=== PATIENT | female | born 1935 | race African-American/Black ===

== ENCOUNTER 2017-12-20 18:50 | Inpatient (IN) ==
[2017-12-20] MEDS ORDERED: *HR* FentaNYL (PF) 100 MCG/2 ML VIAL IVP ONE (19:31)
[2017-12-20] MEDS ORDERED: Ondansetron 4 MG/2 ML VIAL IVP ONE (19:31)
[2017-12-20 19:52] LABS: Bilirubin,Urine Negative (Negative); Blood,Urine Small (Negative); Clarity,Urine Clear (Clear); Color,Urine Yellow (Yellow); Glucose,Urine (UA) Normal (Normal); Ketones,Urine Negative (Negative); Leukocyte Esterase,Urine Negative (Negative); Nitrite,Urine Negative (Negative); Protein,Urine 30 mg/dL (Neg-Trace); Specific Gravity,Urine 1.005 (1.010-1.025); Urobilinogen,Urine Normal (Normal)
[2017-12-20 19:53] LABS: Bacteria,Urine None Seen per hpf (None-Few); Hyaline Casts,Urine None Seen per lpf (None-Few); RBC,Urine 0-3 per hpf (0-3); Squamous Epithelial Cell,Urine None Seen per lpf (None-Few); WBC,Urine 0-3 per hpf (0-3)
--- NOTE | 2017-12-20 20:20 | Emergency Department Note ---
Disposition Clinical Impression: Elevated troponin Abdominal pain Qualifiers: Abdominal location: right upper quadrant Qualified Code(s): R10.11 - Right upper quadrant pain Disposition: Admitted As Inpatient Condition: Good Referrals: Gigi Alas MD [Primary Care Provider] - Forms: ED Satisfaction Letter, Work/School Release General Adult HPI - General Chief complaint: ED Abdominal Pain Stated complaint: ABD PAin Time Seen by Provider: 12/20/17 19:16 Source: patient, family Mode of arrival: ambulatory Limitations: no limitations Nursing Notes Reviewed: Yes Vital Signs Reviewed: Yes - History of Present Illness HPI Narrative: 82-year-old female with significant past medical history of asthma, hypertension and diabetes presenting to the emergency department chief complaint abdominal pain. Patient states last evening she started having right lower quadrant abdominal pain. Today it continued and started radiating to the right upper quadrant. Patient denies any previous abdominal surgeries. Denies any nausea, vomiting, diarrhea or constipation. Patient has not tried anything at home for this. She states it is now radiating from her right upper quadrant into her breasts. Patient denies any cardiac history or any cardiac stents. Denies being on any anticoagulation. Pain Scale: 10 - Related Data Home Medications Medication Instructions Recorded Confirmed Albuterol Sulfate [Proair Hfa] 2 puff IH Q4H PRN 12/20/17 12/20/17 Aspirin Enteric Coated [Aspirin EC] 81 mg PO DAILY 12/20/17 12/20/17 Calcium Carbonate/Vitamin D3 1 tab PO DAILY 12/20/17 12/20/17 [Oyster Shell 250 mg + Vit D Tb] Diltiazem CD (24hr) [Cardizem CD] 120 mg PO DAILY 12/20/17 12/20/17 Docusate [Colace] 100 mg PO BID 12/20/17 12/20/17 Dorzolamide/Timolol [Cosopt] 1 drop OP BID 12/20/17 12/20/17 Latanoprost [Xalatan] 1 drop OP DAILY 12/20/17 12/20/17 Montelukast [Singulair] 10 mg PO DAILY 12/20/17 12/20/17 Multivitamin [One Daily Essential] 1 tab PO DAILY 12/20/17 12/20/17 Potassium Chloride Elixir 5 ml PO TID 12/20/17 12/20/17 [Potassium Chloride] Simvastatin [Zocor] 20 mg PO HS 12/20/17 12/20/17 Telmisartan [Micardis] 80 mg PO DAILY 12/20/17 12/20/17 hydroCHLOROthiazide 25 mg PO DAILY 12/20/17 12/20/17 [Hydrochlorothiazide] Allergies Allergy/AdvReac Type Severity Reaction Status Date / Time No Known Allergies Allergy Verified 12/20/17 17:54 All systems ED: reviewed and negative except as stated. Constitutional: Denies: fever, chills Eyes: Reports: as per HPI ENT ED: Reports: as per HPI Cardiovascular: Denies: chest pain, palpitations, dyspnea on exertion Respiratory: Denies: cough, dyspnea, wheezes Gastrointestinal: Reports: abdominal pain. Denies: nausea, vomiting, diarrhea, constipation Genitourinary: Reports: as per HPI Musculoskeletal: Reports: as per HPI Integumentary: Denies: rash, abrasion Neurological: Denies: numbness, paresthesias Psychiatric: Reports: as per HPI Endocrine: Reports: as per HPI Hematological/Lymphatic: Reports: as per HPI Allergic/Immunologic: Reports: as per HPI Past Medical History - Past Medical History Attestation: Yes The following information was validated with the patient. Medical history: Reports: asthma, COPD, hyperlipidemia, hypertension Psychiatric history: Reports: no psych history - Social History Smoking Status: Former smoker Smokeless Tobacco Status: No Alcohol use: Reports: none Drug use: Reports: none Physical Exam - General Limitations: no limitations General appearance: alert, in no apparent distress - Head Head exam: atraumatic, normocephalic, normal inspection - Eye Eye exam: Present: normal appearance. Absent: scleral icterus, conjunctival injection - ENT ENT exam: normal exam, mucous membranes moist - Neck Neck exam: Present: normal inspection, full ROM. Absent: tenderness, meningismus - Chest Chest inspection: Present: normal inspection, symmetric chest wall rise. Absent : tenderness, rash - Respiratory Respiratory exam: Present: normal lung sounds bilaterally. Absent: respiratory distress, wheezes - Cardiovascular Cardiovascular exam: Present: normal rhythm, tachycardia, normal heart sounds - Abdominal Exam Abdominal exam: Present: soft, tenderness. Absent: distention, guarding, rebound, rigidity Abdominal tenderness: Present: RUQ, mild - Extremities Exam Extremities exam: Present: normal inspection, full ROM - Neurological Exam Neurological exam: Present: alert, oriented X3 - Psychiatric Psychiatric exam: Present: normal affect, normal mood - Skin Skin exam: Present: warm, intact Course Course Narrative: 82-year-old female presenting with right-sided abdominal pain. Patient is alert and 3 in the room with stable vital signs. Afebrile. Patient does have tenderness to right mid abdomen and upper quadrant. Otherwise physical exam benign. We will obtain basic laboratory analysis including CBC, CMP, lipase, urine analysis and CT of the abdomen and pelvis. Disposition pending results. Patient agrees with this plan. We will also obtain a troponin and EKG on the patient. - Reevaluation(s) Reevaluation #1: Patient's laboratory analysis shows mild leukocytosis and elevated troponin at 0.06. Patient denies chest pain. She remains alert and oriented 3 in the room with stable vital signs. CT of the abdomen and pelvis shows 1. No definite CT evidence of an acute intra-abdominal or intrapelvic process. 2. There are areas of skin and fat soft tissue density and thickening posterior upper right thigh and left buttock region which may be related to scarring or an acute infectious or inflammatory process. Correlate with physical inspection. 3. Diverticulosis coli without CT evidence of acute diverticulitis. 4. Bilateral urinary bladder diverticula. 5. Bilateral renal calculi. No hydronephrosis or nephrolithiasis. 6. Small volume right pleural effusion with right basilar atelectasis. Pneumonitis is a consideration. 7. Coronary artery calcifications. 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 Due to patient's elevated troponin we will plan to admit her for further evaluation. Patient agrees with this plan. I spoke with the hospitalist on- call Dr. Lee who agrees to accept the patient. Vital Signs Temperature 98.3 F 12/20/17 19:05 Pulse Rate 101 12/20/17 19:05 Respiratory Rate 16 12/20/17 19:05 Blood Pressure 154/86 12/20/17 19:05 O2 Sat by Pulse Oximetry 93 12/20/17 19:05 Temperature 98.3 F 12/20/17 19:18 Pulse Rate 99 12/20/17 21:05 Respiratory Rate 25 12/20/17 21:05 Blood Pressure 148/86 12/20/17 21:05 O2 Sat by Pulse Oximetry 96 12/20/17 21:05 Oxygen Delivery Oxygen Delivery Nasal Cannula Medical Decision Making - Lab Data Result diagrams: 12/20/17 20:04 12/20/17 20:04 Lab Results 12/20/17 12/20/17 12/20/17 Range/Units 19:37 20:04 20:04 WBC 11.7 H (4.3-11.1) K/mcL RBC 5.02 H (3.82-4.97) M/mcL Hgb 13.8 (11.5-15.4) g/dL Hct 42.4 (35.3-44.9) % MCV 84.5 (83.0-100.0) fL MCH 27.5 L (28.0-33.3) pg MCHC 32.5 (31.6-35.5) g/dL RDW 14.5 (11.5-14.5) % Plt Count 195 (140-400) K/mcL MPV 10.1 (9.4-12.4) fL Immature Gran % 0.2 (0-4) % Seg Neutrophils % 71.8 % Lymphocytes % 20.2 % Monocytes % 7.2 % Eosinophils % 0.3 % Basophils % 0.3 % Neutrophils # 8.4 (1.6-8.9) K/mcL Lymphocytes # 2.4 (0.6-4.6) K/mcL Monocytes # 0.9 (0.0-1.3) K/mcL Eosinophils # 0.0 (0.0-0.6) K/mcL Basophils # 0.0 (0.0-0.2) K/mcL Sodium 138 (136-145) mEq/L Potassium 3.5 (3.5-5.1) mEq/L Chloride 103 (98-107) mEq/L Carbon Dioxide 23 (23-29) mEq/L BUN 15 (8-23) mg/dL Creatinine 0.84 (0.60-1.20) mg/dL Est GFR ( Amer) > 60 (> 60) Est GFR (Non-Af Amer) > 60 (> 60) BUN/Creatinine Ratio 18 (6-26) Glucose 149 H (70-105) mg/dL Calculated Osmolality 290 (280-300) Calcium 9.9 (8.6-10.3) mg/dL Total Bilirubin 0.4 (0.3-1.0) mg/dL Direct Bilirubin 0.1 (0.0-0.2) mg/dL Indirect Bilirubin 0.3 (0.0-1.2) mg/dL AST 17 (13-39) Units/L ALT 9 (7-52) Units/L Alkaline Phosphatase 89 (34-104) Units/L Troponin I 0.06 H* (< 0.04) ng/mL Serum Total Protein 8.0 (6.4-8.9) g/dL Albumin 4.0 (3.5-5.7) g/dL Globulin 4.0 H (2.4-3.5) g/dL Albumin/Globulin Ratio 1.0 L (1.1-2.2) Lipase 35 (11-82) Units/L Urine Color Yellow (Yellow) Urine Clarity Clear (Clear) Urine pH 6.0 (5.0-8.0) pH Units Ur Specific [place] 1.005 L (1.010-1.025) Urine Protein 30 H (Neg-Trace) mg/dL Urine Glucose (UA) Normal (Normal) mg/dL Urine Ketones Negative (Negative) mg/dL Urine Blood Small H (Negative) Urine Nitrite Negative (Negative) Urine Bilirubin Negative (Negative) Urine Urobilinogen Normal (Normal) mg/dL Ur Leukocyte Esterase Negative (Negative) Urine Microscopic RBC 0-3 (0-3) per hpf Urine Microscopic WBC 0-3 (0-3) per hpf Ur Squamous Epith Cells None Seen (None-Few) per lpf Urine Bacteria None Seen (None-Few) per hpf Hyaline Casts None Seen (None-Few) per lpf Ur Culture Indicated? NO (NO) - EKG Data EKG #1 EKG attestation: Yes I reviewed and interpreted this EKG. EKG results narrative: Sinus rhythm. 97 beats for minute. CO interval to 10, QRS 77, QTC 448. PVCs noted. Left axis deviation. Compared to previous EKG completed on 01/25/2005 no significant changes noted.
[2017-12-20 20:22] LABS: Basophils % 0.3 %; Eosinophils % 0.3 %; Hematocrit 42.4 % (35.3-44.9); Hemoglobin 13.8 g/dL (11.5-15.4); Immature Granulocytes % 0.2 % (0-4); Lymphocytes # 2.4 K/mcL (0.6-4.6); Lymphocytes % 20.2 %; Mean Corpuscular HGB Conc 32.5 g/dL (31.6-35.5); Mean Corpuscular Hemoglobin 27.5 pg (28.0-33.3); Mean Corpuscular Volume 84.5 fL (83.0-100.0); Mean Platelet Volume 10.1 fL (9.4-12.4); Monocytes # 0.9 K/mcL (0.0-1.3); Monocytes % 7.2 %; Neutrophils # 8.4 K/mcL (1.6-8.9); Platelet Count 195 K/mcL (140-400); Red Blood Count 5.02 M/mcL (3.82-4.97); Red Cell Distribution Width 14.5 % (11.5-14.5); Segmented Neutrophils % 71.8 %
[2017-12-20 20:43] LABS: Alanine Aminotransferase 9 Units/L (7-52); Alkaline Phosphatase 89 Units/L (34-104); Aspartate Amino Transferase 17 Units/L (13-39); BUN/Creatinine Ratio 18 (6-26); Bilirubin,Direct 0.1 mg/dL (0.0-0.2); Bilirubin,Indirect 0.3 mg/dL (0.0-1.2); Bilirubin,Total 0.4 mg/dL (0.3-1.0); Blood Urea Nitrogen 15 mg/dL (8-23); Calcium 9.9 mg/dL (8.6-10.3); Carbon Dioxide 23 mEq/L (23-29); Chloride 103 mEq/L (98-107); Glucose 149 mg/dL (70-105); Lipase 35 Units/L (11-82); Osmolality,Calculated 290 (280-300); Potassium 3.5 mEq/L (3.5-5.1); Sodium 138 mEq/L (136-145); eGFR For Non-African Americans > 60 (> 60)
[2017-12-20 20:46] LABS: Troponin I 0.06 ng/mL (< 0.04)
[2017-12-20] MEDS ORDERED: *HR* Enoxaparin 60 MG/0.6 ML SYRINGE SQ STA (21:41)
[2017-12-20] MEDS ORDERED: Aspirin 325 MG TABLET PO ONE (21:41)
[2017-12-20] MEDS ORDERED: Levofloxacin 750 MG/150 ML 750 MG/150 ML BAG IVPB ONE (22:01)
--- NOTE | 2017-12-20 22:20 | Emergency Department Note ---
Disposition Clinical Impression: Elevated troponin Abdominal pain Qualifiers: Abdominal location: right upper quadrant Qualified Code(s): R10.11 - Right upper quadrant pain Disposition: Admitted As Inpatient Condition: Good General Adult HPI - General Chief complaint: ED Abdominal Pain Stated complaint: ABD PAin Time Seen by Provider: 12/20/17 19:16 Source: patient, family Mode of arrival: ambulatory Limitations: no limitations - History of Present Illness Pain Scale: 10 - Related Data Home Medications Medication Instructions Recorded Confirmed Albuterol Sulfate [Proair Hfa] 2 puff IH Q4H PRN 12/20/17 12/20/17 Aspirin Enteric Coated [Aspirin EC] 81 mg PO DAILY 12/20/17 12/20/17 Calcium Carbonate/Vitamin D3 1 tab PO DAILY 12/20/17 12/20/17 [Oyster Shell 250 mg + Vit D Tb] Diltiazem CD (24hr) [Cardizem CD] 120 mg PO DAILY 12/20/17 12/20/17 Docusate [Colace] 100 mg PO BID 12/20/17 12/20/17 Dorzolamide/Timolol [Cosopt] 1 drop OP BID 12/20/17 12/20/17 Latanoprost [Xalatan] 1 drop OP DAILY 12/20/17 12/20/17 Montelukast [Singulair] 10 mg PO DAILY 12/20/17 12/20/17 Multivitamin [One Daily Essential] 1 tab PO DAILY 12/20/17 12/20/17 Potassium Chloride Elixir 5 ml PO TID 12/20/17 12/20/17 [Potassium Chloride] Simvastatin [Zocor] 20 mg PO HS 12/20/17 12/20/17 Telmisartan [Micardis] 80 mg PO DAILY 12/20/17 12/20/17 hydroCHLOROthiazide 25 mg PO DAILY 12/20/17 12/20/17 [Hydrochlorothiazide] Allergies Allergy/AdvReac Type Severity Reaction Status Date / Time No Known Allergies Allergy Verified 12/20/17 17:54 Constitutional: Denies: fever, chills Eyes: Reports: as per HPI ENT ED: Reports: as per HPI Cardiovascular: Denies: chest pain, palpitations, dyspnea on exertion Respiratory: Denies: cough, dyspnea, wheezes Gastrointestinal: Reports: abdominal pain. Denies: nausea, vomiting, diarrhea, constipation Genitourinary: Reports: as per HPI Musculoskeletal: Reports: as per HPI Integumentary: Denies: rash, abrasion Neurological: Denies: numbness, paresthesias Psychiatric: Reports: as per HPI Endocrine: Reports: as per HPI Hematological/Lymphatic: Reports: as per HPI Allergic/Immunologic: Reports: as per HPI Past Medical History - Past Medical History Medical history: Reports: asthma, COPD, hyperlipidemia, hypertension Psychiatric history: Reports: no psych history - Social History Smoking Status: Former smoker Smokeless Tobacco Status: No Alcohol use: Reports: none Drug use: Reports: none Physical Exam - General Limitations: no limitations General appearance: alert, in no apparent distress Course Vital Signs Temperature 98.3 F 12/20/17 19:05 Pulse Rate 101 12/20/17 19:05 Respiratory Rate 16 12/20/17 19:05 Blood Pressure 154/86 12/20/17 19:05 O2 Sat by Pulse Oximetry 93 12/20/17 19:05 Temperature 98.3 F 12/20/17 19:18 Pulse Rate 99 12/20/17 21:05 Respiratory Rate 25 12/20/17 21:05 Blood Pressure 148/86 12/20/17 21:05 O2 Sat by Pulse Oximetry 96 12/20/17 21:05 Oxygen Delivery Oxygen Delivery Nasal Cannula Medical Decision Making - Lab Data Result diagrams: 12/20/17 20:04 12/20/17 20:04 Lab Results 12/20/17 12/20/17 12/20/17 Range/Units 19:37 20:04 20:04 WBC 11.7 H (4.3-11.1) K/mcL RBC 5.02 H (3.82-4.97) M/mcL Hgb 13.8 (11.5-15.4) g/dL Hct 42.4 (35.3-44.9) % MCV 84.5 (83.0-100.0) fL MCH 27.5 L (28.0-33.3) pg MCHC 32.5 (31.6-35.5) g/dL RDW 14.5 (11.5-14.5) % Plt Count 195 (140-400) K/mcL MPV 10.1 (9.4-12.4) fL Immature Gran % 0.2 (0-4) % Seg Neutrophils % 71.8 % Lymphocytes % 20.2 % Monocytes % 7.2 % Eosinophils % 0.3 % Basophils % 0.3 % Neutrophils # 8.4 (1.6-8.9) K/mcL Lymphocytes # 2.4 (0.6-4.6) K/mcL Monocytes # 0.9 (0.0-1.3) K/mcL Eosinophils # 0.0 (0.0-0.6) K/mcL Basophils # 0.0 (0.0-0.2) K/mcL Sodium 138 (136-145) mEq/L Potassium 3.5 (3.5-5.1) mEq/L Chloride 103 (98-107) mEq/L Carbon Dioxide 23 (23-29) mEq/L BUN 15 (8-23) mg/dL Creatinine 0.84 (0.60-1.20) mg/dL Est GFR ( Amer) > 60 (> 60) Est GFR (Non-Af Amer) > 60 (> 60) BUN/Creatinine Ratio 18 (6-26) Glucose 149 H (70-105) mg/dL Calculated Osmolality 290 (280-300) Calcium 9.9 (8.6-10.3) mg/dL Total Bilirubin 0.4 (0.3-1.0) mg/dL Direct Bilirubin 0.1 (0.0-0.2) mg/dL Indirect Bilirubin 0.3 (0.0-1.2) mg/dL AST 17 (13-39) Units/L ALT 9 (7-52) Units/L Alkaline Phosphatase 89 (34-104) Units/L Troponin I 0.06 H* (< 0.04) ng/mL Serum Total Protein 8.0 (6.4-8.9) g/dL Albumin 4.0 (3.5-5.7) g/dL Globulin 4.0 H (2.4-3.5) g/dL Albumin/Globulin Ratio 1.0 L (1.1-2.2) Lipase 35 (11-82) Units/L Urine Color Yellow (Yellow) Urine Clarity Clear (Clear) Urine pH 6.0 (5.0-8.0) pH Units Ur Specific [place] 1.005 L (1.010-1.025) Urine Protein 30 H (Neg-Trace) mg/dL Urine Glucose (UA) Normal (Normal) mg/dL Urine Ketones Negative (Negative) mg/dL Urine Blood Small H (Negative) Urine Nitrite Negative (Negative) Urine Bilirubin Negative (Negative) Urine Urobilinogen Normal (Normal) mg/dL Ur Leukocyte Esterase Negative (Negative) Urine Microscopic RBC 0-3 (0-3) per hpf Urine Microscopic WBC 0-3 (0-3) per hpf Ur Squamous Epith Cells None Seen (None-Few) per lpf Urine Bacteria None Seen (None-Few) per hpf Hyaline Casts None Seen (None-Few) per lpf Ur Culture Indicated? NO (NO) Critical Care Time Critical Care Time: Yes Total Critical Care Time: 35 Attestation: Critical care time of 35 minutes spent in medical management of elevated troponin. Attestation Statement - Attestation Attestation: I examined this patient and my medical decision-making was reviewed with the Resident Physician. I agree with the documented findings, disposition and treatment plan as described except to the extent set forth below. 82-year-old female in presented to the emergency room for upper abdominal discomfort. Most her pain is in the right upper quadrant region. Seemed to be muscle spasm type pain. Would come on quickly and abruptly and felt sharp in nature and then go away. When I was in the room examining her it appeared as though she had a diaphragmatic spasm. However, her troponin is slightly elevated. Patient will need to be admitted for evaluation for this with serial enzymes. She was given Lovenox secondary to the elevated troponin. Remaining workup including CT the abdomen and pelvis was unremarkable. She is hemodynamically stable. There is no signs of ischemia on her EKG. She is adamant that she denies any chest pain or shortness of breath.
--- NOTE | 2017-12-20 23:12 | Internal Med History&Physical ---
<Marsha Guillory - Last Filed: 12/21/17 01:25> Date of Encounter: 12/21/17 Time of Encounter: 23:10 Internal Medicine - H&P: HPI Chief complaint: abdominal pain Admitted From: Emergency Dept Plans for Post Hospital Care: Home History of present illness: Ms. Dobbins is a 82 year old female hx asthma and DM presented to ED for abdominal pain . She describes it as " like having a baby" that is deep sharp pain but not cramping or stabbing - onset yesterday with feverish feeling. Pain unchanged by bowel movement or eating. Hans nausea , vomiting, diarrhea, and constipation- last BM yesterday was normal. Improved with Tylenol. In ED, afebrile mildly tachycardia at 102 with BP 154/ 86 and RR16 with 93% RA. WBC 11.7, normal CMP and liver function. Elevated troponin 0.06. UA negative. CT ABD pelvis possible pneumonitis. PMHx asthma, HTN, carotid stentosis and DM diet controlled - no history of IBS or IBD and last colonoscopy 4 years ago was normal. Family history of colon cancer in daughter at 61. No surgical history. Former smoker quit over 50 years ago. Denies EtOH and illicit drugs. Past Med Surg Social Fam HX - Past Medical History Medical history: asthma, COPD, hyperlipidemia, hypertension Additional medical history: Type II prediabetic diet controlled Psychiatric history: no psych history - Social History Smoking Status: Former smoker Smokeless Tobacco Status: No Alcohol use: none Drug use: none Internal Medicine - H&P: Meds Albuterol Sulfate [Proair Hfa] 2 puff IH Q4H PRN 12/20/17 [History] Aspirin Enteric Coated [Aspirin EC] 81 mg PO DAILY 12/20/17 [History] Calcium Carbonate/Vitamin D3 [Oyster Shell 250 mg + Vit D Tb] 1 tab PO DAILY [History] Diltiazem CD (24hr) [Cardizem CD] 120 mg PO DAILY 12/20/17 [History] Docusate [Colace] 100 mg PO BID 12/20/17 [History] Dorzolamide/Timolol [Cosopt] 1 drop OP BID 12/20/17 [History] Latanoprost [Xalatan] 1 drop OP DAILY 12/20/17 [History] Montelukast [Singulair] 10 mg PO DAILY 12/20/17 [History] Multivitamin [One Daily Essential] 1 tab PO DAILY 12/20/17 [History] Potassium Chloride Elixir [Potassium Chloride] 5 ml PO TID 12/20/17 [History] Simvastatin [Zocor] 20 mg PO HS 12/20/17 [History] Telmisartan [Micardis] 80 mg PO DAILY 12/20/17 [History] hydroCHLOROthiazide [Hydrochlorothiazide] 25 mg PO DAILY 12/20/17 [History] 3 Allergy/AdvReac Type Severity Reaction Status Date / Time No Known Allergies Allergy Verified 12/20/17 17:54 All Systems PM: A 10-system review of systems was performed and is negative for pertinent findings except as documented above in the HPI. - Constitutional Constitutional: fever(s), no fatigue, no weakness - EENT Eyes: no blurry vision - Cardiovascular Cardiovascular ROS IM: no chest pain, no dyspnea, no edema, no lightheadedness, no syncope - Respiratory Respiratory: pain on inspiration, no cough, no wheezing, no excessive phlegm production - Gastrointestinal Gastrointestinal: abdominal pain, no change in bowel habits, no change in stool character, no constipation, no diarrhea, no nausea, no vomiting - Genitourinary Genitourinary: no dysuria, no urinary frequency, no urinary incontinence - Musculoskeletal Musculoskeletal ROS IM: no numbness, no tingling - Neurological Neurological ROS: no confusion, no dizziness, no frequent falls, no headache(s) - Psychiatric Psychiatric: no difficulty concentrating, no memory loss - Constitutional Vitals: Temp Pulse Resp BP Pulse Ox 98.3 F 92 19 139/90 100 12/20/17 19:18 12/20/17 22:45 12/20/17 22:45 12/20/17 22:45 12/20/17 22:45 General appearance: Present: cooperative, mild distress, A&O X 3, pleasant, answers questions appropriately Exam: periodically splints due to pain - Head Head exam: Present: atraumatic, normocephalic - Eye Eye exam: Present: EOMI, PERRL - ENT ENT exam: Present: mucous membranes moist, normal oropharynx - Respiratory Respiratory exam: Present: CTAB. Absent: rales, wheezes Additional comments: poor effort due to pain with inspirations - Cardiovascular Cardiovascular exam: Present: RRR. Absent: gallop, rubs - GI/Abdominal GI/Abdominal exam: Present: normal bowel sounds, soft. Absent: mass, tenderness Additional comments: No pain with palpation of RUQ but jumps in pain localized there when asked to take deep breath - Extremities Exam Extremities exam: Present: full ROM, radial pulses palpable and symmetrical. Absent: pedal edema - Psychiatric Psychiatric exam: Present: normal affect, normal mood Internal Med - H&P Results - Labs CBC & Chem 7: 12/20/17 20:04 12/20/17 20:04 - Assessment and plan (1) Pneumonitis Current Visit: Yes Status: Acute Assessment and plan: Possible pnuemonitis - CT ABD small volume right pleural effusion with atelectasis - Levaquin (2) Abdominal pain Current Visit: Yes Status: Acute Assessment and plan: DDX reffered pain from pneumonitis vs gallbladder dysfunction with RUQ pain and WBC 11.7. - Tylenol for pain - US Liver to r/o - IVF NS at 100 - NPO (3) Elevated troponin Current Visit: Yes Status: Acute Assessment and plan: T 0.06 likely due to age but small EKG changes with mild ST depression in leads V5-V6 - trend troponins - echo (4) Diabetes Current Visit: Yes Status: Acute Assessment and plan: diet controlled at home Qualifiers: Diabetes mellitus type: type 2 Diabetes mellitus rn long term care insulin use: without shelter use Qualified Code(s): E11.9 - Type 2 diabetes mellitus without complications (5) Hypertension Current Visit: Yes Status: Acute Assessment and plan: Tolerate elevated BP in geriatric patient in setting of pain - continue cardizem and Micardis - hold HCTZ Qualifiers: Hypertension type: essential hypertension Qualified Code(s): I10 - Essential (primary) hypertension (6) DVT prophylaxis Current Visit: Yes Status: Acute Assessment and plan: given lovenox 60 mg in ED - consider changing - Time Spent With Patient Total time spent is greater than 50% in coordination of care (as documented) at patient's floor/unit and/or counseling patient: Greater than 35 minutes <Adalberto Lee - Last Filed: 12/21/17 04:03> Date of Encounter: 12/21/17 Time of Encounter: 01:40 - Constitutional Constitutional: fever(s), no chills, no night sweats - EENT Nose, mouth and throat: no nasal congestion, no sore throat - Cardiovascular Cardiovascular ROS IM: no chest pain, no dyspnea - Gastrointestinal Gastrointestinal: abdominal pain, no diarrhea, no nausea, no vomiting - Genitourinary Genitourinary: no dysuria, no flank pain, no hematuria - Integumentary Integumentary IM: no rash, no jaundice - Psychiatric Psychiatric: no anxiety, no depression - Endocrine Endocrine IM: no polydipsia, no polyuria - Allergic/Immunologic Allergic/Immunologic: no GI upset with certain foods - Constitutional Vitals: Temp Pulse Resp BP Pulse Ox 98.0 F 88 16 98/65 96 12/21/17 03:21 12/21/17 03:21 12/21/17 03:21 12/21/17 03:21 12/21/17 03:21 General appearance: Present: cooperative, A&O X 3, pleasant - Eye Eye exam: Present: EOMI. Absent: scleral icterus - ENT ENT exam: Present: mucous membranes moist, normal oropharynx - Neck Neck exam general surgery: Present: full ROM, supple. Absent: tenderness, nuchal rigidity, thyromegaly - Respiratory Respiratory exam: Present: CTAB. Absent: chest wall tenderness, respiratory distress - Cardiovascular Cardiovascular exam: Present: RRR, +S1, +S2. Absent: diastolic murmur, systolic murmur - GI/Abdominal GI/Abdominal exam: Present: normal bowel sounds, soft, tenderness (+ RUQ pain with deep palpation; ), no peritoneal signs. Absent: guarding, rebound - Extremities Exam Extremities exam: Present: full ROM, warm, radial pulses palpable and symmetrical - Back Exam Back exam: Absent: CVA tenderness (L), CVA tenderness (R) - Neurological Exam Neurological exam: Present: alert, oriented X3, no focal deficits Internal Med - H&P Results - Labs CBC & Chem 7: 12/20/17 20:04 12/20/17 20:04 - Diagnostic Studies Chest x-ray Status: image reviewed by me (subtle interstitial infiltrates) - Time Spent With Patient Total time spent is greater than 50% in coordination of care (as documented) at patient's floor/unit and/or counseling patient: - Attending Attestation I discussed the patient PLATINUM, past medical history, review systems, exam findings, and imaging studies with Dr. Guillory. I then saw and examined patient independently as well. History does not suggest pneumonia. However, imaging does suggest possible interstitial pneumonitis. Her exam is a little concerning for gallbladder disease. She does not have any history to suggest biliary colic, however. We will proceed with gallbladder ultrasound while treating possible pneumonia. We will also trend troponins and order an echo given her slight troponin elevation. EKG is unremarkable and history does not suggest angina. Other than my comments above and noted physical exam findings, I agree with Dr. Guillory's assessment and plan.
[2017-12-20] MEDS ORDERED: Ondansetron ODT 4 MG TAB.RAPDIS SL PRN (23:13)
[2017-12-20] MEDS ORDERED: Naloxone 0.4 MG/ML INJ IVP PRN (23:13)
[2017-12-21] MEDS: Acetaminophen 325 MG TABLET PO PRN ×2 (00:15→10:21)
[2017-12-21] MEDS ORDERED: 0.9 % Sodium Chloride 1,000 ML IVC SCH (01:30)
[2017-12-21 04:57] LABS: Basophils % 0.4 %; Eosinophils % 1.3 %; Hematocrit 36.9 % (35.3-44.9); Immature Granulocytes % 0.2 % (0-4); Lymphocytes % 23.1 %; Mean Corpuscular HGB Conc 32.5 g/dL (31.6-35.5); Mean Corpuscular Hemoglobin 27.3 pg (28.0-33.3); Mean Corpuscular Volume 83.9 fL (83.0-100.0); Monocytes % 12.5 %; Platelet Count 186 K/mcL (140-400); Red Cell Distribution Width 14.3 % (11.5-14.5); Segmented Neutrophils % 62.5 %
[2017-12-21 04:58] LABS: Eosinophils # 0.1 K/mcL (0.0-0.6); Lymphocytes # 1.9 K/mcL (0.6-4.6); Neutrophils # 5.2 K/mcL (1.6-8.9)
[2017-12-21 05:27] LABS: Alanine Aminotransferase 7 Units/L (7-52); Albumin 3.3 g/dL (3.5-5.7); Albumin/Globulin Ratio 0.9 (1.1-2.2); Alkaline Phosphatase 73 Units/L (34-104); Aspartate Amino Transferase 13 Units/L (13-39); BUN/Creatinine Ratio 20 (6-26); Bilirubin,Total 0.5 mg/dL (0.3-1.0); Blood Urea Nitrogen 19 mg/dL (8-23); Carbon Dioxide 22 mEq/L (23-29); Chloride 104 mEq/L (98-107); Globulin 3.5 g/dL (2.4-3.5); Glucose 109 mg/dL (70-105); Osmolality,Calculated 285 (280-300); Potassium 3.1 mEq/L (3.5-5.1); Sodium 136 mEq/L (136-145); Total Protein 6.8 g/dL (6.4-8.9); eGFR For Non-African Americans 56 (> 60)
[2017-12-21 05:42] LABS: Troponin I 0.05 ng/mL (< 0.04)
[2017-12-21] MEDS: Diltiazem CD (24hr) 120 MG CAPSULE PO SCH (10:21)
[2017-12-21] MEDS: Aspirin Enteric Coated 81 MG Tablet PO SCH (10:21)
[2017-12-21 11:15] LABS: Troponin I 0.04 ng/mL (< 0.04)
--- NOTE | 2017-12-21 11:49 | Internal Med Progress Note ---
Hospitalist Progress Note - Encounter Date of Encounter: 12/21/17 Time of Encounter: 11:46 - Subjective Interval History: Patient seen and examined in the room with family. She reported intermittent right-sided abdominal pain, worsened with movement, no associated nausea, vomiting, or diarrhea. - Exam Vitals: Temp Pulse Resp BP Pulse Ox 97.9 F 101 17 177/100 93 12/21/17 10:59 12/21/17 10:59 12/21/17 10:59 12/21/17 10:59 12/21/17 10:59 Exam: PHYSICAL EXAMINATION: GENERAL APPEARANCE: The patient is alert, oriented and in no acute distress. HEENT: Head is normocephalic. The sinuses are nontender. Pupils are equal and reactive. The nares are patent. Oropharynx clear without lesions. NECK: Supple without lymphadenopathy. HEART: Regular rate and rhythm. LUNGS: No crackles or wheezes are heard. ABDOMEN: Soft, tender to palpation on the right side, nondistended with good bowel sounds heard. Inguinal area is normal. EXTREMITIES: Without cyanosis, clubbing or edema. NEUROLOGICAL: Gross nonfocal. SKIN: Warm and dry without any rash. - Assessment and Plan (1) Abdominal pain Current Visit: Yes Status: Acute Assessment and Plan: 82-year-old female presented with 4-5 days of right-sided intermittent abdominal pain without associated N/V/D. Patient has history of diverticulosis , renal stone, and a bladder diverticula which all revealed on abd CT. CT abdomen no acute abnormalities. No skin or soft tissue damage/inflammation noted on physical exam, however, pain can be elicited by palpation on the skin and muscle of the right side. - Although The patient has a history of kidney stone, renal colic is unlikely and it does not fit in the pain pattern described by the patient. Etiology is likely muscle damage/nerve entrapment, will check CK, cold compression. morphine for severe pain. - Hold statins for now due to concerning muscle damage/rhabdomyolysis. (2) Elevated troponin Current Visit: Yes Status: Acute Assessment and Plan: Troponin slightly elevated plantar flat rate, patient denies any chest pain, EKG no ST acute ST-T change, unlikely ACS, could be the artifact of muscle damage, will check CK level. (3) Diabetes Current Visit: No Status: Chronic Assessment and Plan: She does not use insulin and oral agent at home, currently on diet control, continue ADA diet. (4) Hypertension Current Visit: No Status: Chronic Assessment and Plan: BP controlled, continue home medications. (5) Pneumonitis Current Visit: No Status: Chronic Assessment and Plan: T revealed a possible pneumonitis, however, patient has no respiratory complaints, follow-up as outpatient. (6) Hypokalemia Current Visit: Yes Status: Acute Assessment and Plan: Replaced, repeat BMP in the morning. (7) DVT prophylaxis Current Visit: Yes Status: Acute Assessment and Plan: Heparin subcutaneous. - Time Spent with Patient Total time spent is greater than 50% in coordination of care (as documented) at patient's floor/unit and/or counseling patient: Greater than 35 minutes Plan of Care Discussed with: patient Internal Medicine: Result - Labs CBC & Chem 7: 12/21/17 04:26 12/21/17 04:26 Labs: Short CBC 12/21/17 Range/Units 04:26 WBC 8.4 (4.3-11.1) K/mcL Hgb 12.0 D (11.5-15.4) g/dL Hct 36.9 (35.3-44.9) % Plt Count 186 (140-400) K/mcL Neutrophils # 5.2 (1.6-8.9) K/mcL BMP 12/21/17 04:26 Sodium 136 Potassium 3.1 L Chloride 104 Carbon Dioxide 22 L BUN 19 Creatinine 0.95 Glucose 109 H Calcium 9.0 Cardiac Enzymes 12/21/17 12/21/17 Range/Units 04:26 10:40 Troponin I 0.05 H* 0.04 H* (< 0.04) ng/mL Liver Function 12/21/17 Range/Units 04:26 Total Bilirubin 0.5 (0.3-1.0) mg/dL AST 13 (13-39) Units/L ALT 7 (7-52) Units/L Alkaline Phosphatase 73 (34-104) Units/L Albumin 3.3 L (3.5-5.7) g/dL - Impressions Impressions Liver Ultrasound 12/21/17 08:30 IMPRESSION: There is a 4-5 mm benign gallbladder polyp. No additional follow-up is warranted. Benign right renal cysts. Small right pleural effusion. 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
[2017-12-21] MEDS: *HR* Morphine 2 MG/ML SYRINGE IVP PRN ×2 (12:58→16:56)
[2017-12-21] MEDS: Potassium Chloride Elixir 20 MEQ/15 ML UDC PO SCH ×2 (14:07→20:10)
--- NOTE | 2017-12-21 17:09 | Electrocardiograph Report ---
[address] [address] Test Date: 2017-12-20 Pat Name: Angela Dobbins Department: [id number] Room: 3B32 Gender: F Paperboard Machine Operator: : [id number] Requested By: Nissa Ryan Order Number: [id number] Reading MD: Esperanza Potter Measurements Intervals [place] Rate: 97 P: 60 NH: 210 QRS: -20 QRSD: 77 T: 45 QT: 352 QTc: 448 Interpretive Statements Sinus tachycardia Premature complexes, vent & supraventricular Borderline prolonged NH interval Borderline left axis deviation Borderline T abnormalities, anterior leads Electronically Signed On 12-21-2017 17:07:46 EDT by Esperanza Potter
[2017-12-21] MEDS: *HR* Heparin 5,000 UNIT/ML VIAL SQ SCH (17:13)
[2017-12-21] MEDS: Dorzolamide/Timolol OPTH 10 ML BOTTLE RIGHT EYE SCH (20:11)
[2017-12-22 05:04] LABS: BUN/Creatinine Ratio 19 (6-26); Blood Urea Nitrogen 16 mg/dL (8-23); Calcium 9.4 mg/dL (8.6-10.3); Carbon Dioxide 22 mEq/L (23-29); Chloride 108 mEq/L (98-107); Glucose 123 mg/dL (70-105); Osmolality,Calculated 291 (280-300); Potassium 3.9 mEq/L (3.5-5.1); Sodium 139 mEq/L (136-145); eGFR For Non-African Americans > 60 (> 60)
[2017-12-22] MEDS: *HR* Heparin 5,000 UNIT/ML VIAL SQ SCH ×2 (06:04→17:12)
[2017-12-22] MEDS: Potassium Chloride Elixir 20 MEQ/15 ML UDC PO SCH ×3 (07:48→21:28)
[2017-12-22] MEDS: hydroCHLOROthiazide 25 MG TABLET PO SCH (07:49)
[2017-12-22] MEDS: Diltiazem CD (24hr) 120 MG CAPSULE PO SCH (07:49)
[2017-12-22] MEDS: Multivit/Ca/Min/Fe/FA 1 TAB TABLET PO SCH (07:49)
[2017-12-22] MEDS: Acetaminophen 325 MG TABLET PO PRN ×2 (07:50→15:28)
[2017-12-22] MEDS: Aspirin Enteric Coated 81 MG Tablet PO SCH (07:50)
[2017-12-22] MEDS: Cholecalciferol (D-3) 1,000 UNIT TABLET PO SCH (07:50)
[2017-12-22] MEDS ORDERED: Latanoprost 2.5 ML BOTTLE RIGHT EYE SCH (09:00)
--- NOTE | 2017-12-22 10:21 | Internal Med Progress Note ---
Hospitalist Progress Note - Encounter Date of Encounter: 12/22/17 Time of Encounter: 09:00 - Subjective Interval History: Mrs. Dobbins is an 82-year-old -[place] female, who was admitted with intermittent right-sided abdominal pain worsening with movement without nausea vomiting or diarrhea. General workup was completed as well as a liver ultrasound which showed a 45 mm benign gallbladder polyp, benign right renal cyst small right pleural effusion. Today she continues with pain in the right lower abdomen upper abdomen and her right back. She rates her pain as a 10 on a scale of 10 she is currently using an ice pack to help some of her pain she does have morphine ordered and is receiving that every 4 hours. She denies any other chest pain she is dyspneic with O2 on denies cough no hemoptysis. - Exam Vitals: Temp Pulse Resp BP Pulse Ox 98.1 F 98 18 137/80 96 12/22/17 07:40 12/22/17 07:40 12/22/17 07:40 12/22/17 07:40 12/22/17 07:40 Exam: Paints dyspneic with some mild shortness of breath O2 on at 2 L per nasal cannula - Assessment and Plan (1) Abdominal pain Current Visit: Yes Status: Acute Assessment and Plan: Continues with right upper abdominal pain or abdominal pain denies having any bowel movement today states she did have bowel movement prior to being admitted day before yesterday. Liver ultrasound shows that she is positive for gallbladder polyp, and was without cholelithiasis. She also is positive for right pleural effusion and a small right kidney stone. We will continue with her pain management with morphine every 4 hours and monitor (2) Elevated troponin Current Visit: Yes Status: Acute Assessment and Plan: Troponins have remained elevated and trended 2 however decreasing to 0.04 on . Potassium has normalized to 3.9 chloride to remain slightly elevated at 108. Echo shows an LVE of 60-65%, mild left ventricular diastolic dysfunction, mild to moderate tricuspid regurgitation, and moderate to severe pulmonary hypertension. We will consult cardiology and continue daily medications. (3) Diabetes Current Visit: No Status: Chronic Assessment and Plan: Glucose today is 123 we will continue her current medications monitoring her blood sugars (4) Hypertension Current Visit: No Status: Chronic Assessment and Plan: Stable @ 136/80 pulse 98 Will continue current medications and continue to monitor (5) DVT prophylaxis Current Visit: Yes Status: Acute Assessment and Plan: Per protocol (6) Pneumonitis Current Visit: No Status: Chronic Assessment and Plan: Currently on IV antibiotics of Zosyn, She remains afebrile we will continue with her IV ATB (7) Hypokalemia Current Visit: Yes Status: Resolved Assessment and Plan: Potassium has normalized at 3.9 We will continue to monitor with daily labs - Summary of Assessment and Plan Summary of Assessment and Plan: Mrs. Dobbins is an 82-year-old -[place] female who was admitted with right-sided abdominal and back pain. Today she continues to have rate her pain as a 10 on a scale of 10 with right lower and upper abdominal pain and right sided back pain. She currently is receiving morphine every 4 hours and we will continue that she is also using an ice pack to help relieve some of her signs and symptoms liver ultrasound showed a 45 mm gallbladder polyp right renal cyst and small right pleural effusion. We will continue with her current IV antibiotics. Troponins remained elevated 2 we will consult cardiology. Echo showed a LE with EF of 60-65%, mild tricuspid regurg which is chronic. 4 is the noted nephrolithiasis we will start straining patient's urine and start her on continuous IV fluids, we will consult nephrology. . - Time Spent with Patient Total time spent is greater than 50% in coordination of care (as documented) at patient's floor/unit and/or counseling patient: less than 15 minutes Internal Medicine: Result - Labs CBC & Chem 7: 12/21/17 04:26 12/22/17 04:27 Labs: BMP 12/22/17 04:27 Sodium 139 Potassium 3.9 Chloride 108 H Carbon Dioxide 22 L BUN 16 Creatinine 0.85 Glucose 123 H Calcium 9.4 Cardiac Enzymes 12/21/17 Range/Units 10:40 Troponin I 0.04 H* (< 0.04) ng/mL - Impressions Impressions Echocardiogram 12/21/17 01:14 Impressions: LVEF 60-65%. Mild left ventricular diastolic dysfunction. RV size is not optimally visualized. Function is normal by tissue Doppler. Mild-moderate tricuspid regurgitation. Moderate to severe pulmonary hypertension. TR gradient 61 mmHg. IVC is not well visualized to estimate RVSP. No prior echo for comparison. Left Ventricular Wall Motion: Rest Echo Findings All wall segments showed normal motion. Findings: Study Quality * Technically adequate exam. ECG Findings * Normal sinus rhythm. Left Ventricle * LVEF 60-65%. * Normal LV chamber size, wall thickness and function. * Mild left ventricular diastolic dysfunction. Right Ventricle * RV size is not optimally visualized. Function is normal by tissue Doppler. Left Atrium * Normal left atrial size. Right Atrium * Normal right atrial size. Mitral Valve * Normal mitral valve structure. * No mitral stenosis. * No mitral regurgitation. Aortic Valve * No aortic regurgitation. * Aortic valve not well visualized. * No aortic stenosis. Tricuspid Valve * Tricuspid valve not well visualized. * Mild-moderate tricuspid regurgitation. Pulmonic Valve * Pulmonic valve is not well visualized. * No pulmonic stenosis. * No pulmonic regurgitation. Pulmonary Artery * Pulmonary artery not well visualized. Aorta * Normally sized aortic root. Pericardium * There is no pericardial effusion present. Interatrial Septum * Interatrial septum not well evaluated. IVC * The IVC is not well evaluated. Liver Ultrasound 12/21/17 08:30 IMPRESSION: There is a 4-5 mm benign gallbladder polyp. No additional follow-up is warranted. Benign right renal cysts. Small right pleural effusion. D/ / 12/21/2017 10:13:32 Alpesh Bonilla MD / Jackie Zarco Interpreting Provider: Alpesh Bonilla MD Consult Discharge Plan - Plan Referrals: Gigi Alas MD [Primary Care Provider] - 01/01/18 11:00 am (1) Abdominal pain Qualifiers: Abdominal location: right upper quadrant Qualified Code(s): R10.11 - Right upper quadrant pain (3) Diabetes Qualifiers: Diabetes mellitus type: type 2 Diabetes mellitus alf insulin use: without alf use Diabetes mellitus complication status: with unspecified complications Qualified Code(s): E11.8 - Type 2 diabetes mellitus with unspecified complications (4) Hypertension Qualifiers: Hypertension type: essential hypertension Qualified Code(s): I10 - Essential (primary) hypertension
[2017-12-22] MEDS: 0.9 % Sodium Chloride 1,000 ML IVC SCH ×2 (10:57→18:27)
[2017-12-22] MEDS: Dorzolamide/Timolol OPTH 10 ML BOTTLE RIGHT EYE SCH (10:59)
[2017-12-22] MEDS: Ipratropium/Albuterol Neb 3 ML IH SCH ×4 (11:40→23:43)
[2017-12-22] MEDS: Piperacillin/Tazobactam 3.375 GM in 0.9 % Sodium Chloride Mini Bag 100 ML IVPB SCH (17:11)
--- NOTE | 2017-12-22 17:26 | Cardiology Consult Note ---
Date of Encounter: 12/22/17 Time of Encounter: 13:00 Assessment and Plan (1) (HFpEF) heart failure with preserved ejection fraction Current Visit: Yes Status: Acute Patient has evidence of diastolic heart failure exacerbation. X-ray shows vascular congestion with blunting of the R costophrenic angle. Please obtain BNP. Recommend diuresis with IV Lasix 20 mg daily. Maintain strict I's and O's. Consider stress test once patient is euvolemic. (2) Elevated troponin Current Visit: Yes Status: Acute EKG showed sinus tachycardia with APCs and nonspecific ST-T wave changes. Likely from heart failure versus possible abdomen infection. No indication for anti-ischemic therapy at this time. Discussion w patient/family: The assessment and plan as outlined above was discussed with the patient and/or family members who expressed understanding and agreement. All questions were answered. Thank you for involving us in the care of your patient. Please call with any questions. History of Present Illness Consult date: 12/22/17 Requesting physician: Abigail Gil Consult reason: Elevated troponin Chief complaint: Abdominal pain History of present illness: Ms. Dobbins is a 82 year old female with history of hypertension and diabetes, admitted for right upper abdominal pain associated with fever, that started at rest since . She admits to shortness of breath on exertion. She does have history of heart failure for which she takes lasix at home. She reports adherence to medication however admits to eating salt containing snacks. She denies chest pain, palpitations, orthopnea, cough and leg swelling. On admission she was found to have elevated troponin peaking at 0.06, hence cardiology consult was called. Echocardiogram shows EF 60-65%. Mild-moderate tricuspid regurgitation. Moderate to severe pulmonary hypertension with TR gradient 61 mmHg. She has never had stress test or cardiac catheterization. Past Med Surg Social Fam HX - Past Medical History Medical history: asthma, COPD, hyperlipidemia, hypertension Additional medical history: Type II prediabetic diet controlled Psychiatric history: no psych history - Social History Smoking Status: Former smoker Smokeless Tobacco Status: No Alcohol use: none Drug use: none Medications and Allergies Albuterol Sulfate [Proair Hfa] 2 puff IH Q4H PRN 12/20/17 [History] Aspirin Enteric Coated [Aspirin EC] 81 mg PO DAILY 12/20/17 [History] Calcium Carbonate/Vitamin D3 [Oyster Shell 250 mg + Vit D Tb] 1 tab PO DAILY [History] Diltiazem CD (24hr) [Cardizem CD] 120 mg PO DAILY 12/20/17 [History] Docusate [Colace] 100 mg PO BID 12/20/17 [History] Dorzolamide/Timolol [Cosopt] 1 drop OP BID 12/20/17 [History] Latanoprost [Xalatan] 1 drop OP DAILY 12/20/17 [History] Montelukast [Singulair] 10 mg PO DAILY 12/20/17 [History] Multivitamin [One Daily Essential] 1 tab PO DAILY 12/20/17 [History] Potassium Chloride Elixir [Potassium Chloride] 5 ml PO TID 12/20/17 [History] Simvastatin [Zocor] 20 mg PO HS 12/20/17 [History] Telmisartan [Micardis] 80 mg PO DAILY 12/20/17 [History] hydroCHLOROthiazide [Hydrochlorothiazide] 25 mg PO DAILY 12/20/17 [History] 3 Allergy/AdvReac Type Severity Reaction Status Date / Time No Known Allergies Allergy Verified 12/20/17 17:54 All Systems Review: The remainder of the systems were reviewed and are negative - Constitutional Constitutional: fever(s), no anorexia, no headache(s) - EENT Eyes: no blurred vision Nose, mouth and throat: no bleeding gums, no odynophagia - Cardiovascular Cardiovascular: no as per HPI - Respiratory Respiratory: no cough, no wheezing - Gastrointestinal Gastrointestinal: abdominal pain, no dysphagia - Genitourinary Genitourinary: no dysuria - Musculoskeletal Musculoskeletal: no abnormal gait - Integumentary Integumentary: no erythema - Neurological Neurological: no abnormal speech - Psychiatric Psychiatric: no anxiety - Hematological/Lymphatic Hematologic/Lymphatic: no easy bleeding Physical Examination Vital Signs, Last 4 Hours Temp Pulse Resp BP Pulse Ox 12/22/17 16:34 98.0 F 86 18 167/93 90 General: Conversant HEENT: Atraumatic Neck: No JVD, Normal carotid pulses Cardiac: Reg Rate and Rhythm, Normal S1 and S2, No Murmur Lungs: Other (Mid faint bibasilar rales.) Neuro: Alert and responsive Abdomen: Soft, Non-Tender, Other Musculoskeletal: No Chest Wall Tenderness Extremities: No Edema Results 12/21/17 04:26 12/22/17 04:27 Consult Discharge Plan - Plan Referrals: Gigi Alas MD [Primary Care Provider] - 01/01/18 11:00 am
[2017-12-22] MEDS: Dorzolamide/Timolol OPTH 10 ML BOTTLE BOTH EYES SCH (21:28)
[2017-12-22] MEDS: Latanoprost 2.5 ML BOTTLE RIGHT EYE SCH (21:29)
[2017-12-23] MEDS: 0.9 % Sodium Chloride 1,000 ML IVC SCH ×2 (02:40→11:34)
[2017-12-23] MEDS: Acetaminophen 325 MG TABLET PO PRN (03:58)
[2017-12-23] MEDS: Ipratropium/Albuterol Neb 3 ML IH SCH ×5 (04:14→19:51)
[2017-12-23] MEDS: Piperacillin/Tazobactam 3.375 GM in 0.9 % Sodium Chloride Mini Bag 100 ML IVPB SCH ×2 (06:25→17:17)
[2017-12-23] MEDS: *HR* Heparin 5,000 UNIT/ML VIAL SQ SCH ×2 (06:27→17:18)
[2017-12-23 07:35] LABS: Basophils % 0.3 %; Eosinophils # 0.2 K/mcL (0.0-0.6); Eosinophils % 2.5 %; Hematocrit 32.8 % (35.3-44.9); Hemoglobin 10.6 g/dL (11.5-15.4); Immature Granulocytes % 0.3 % (0-4); Lymphocytes % 21.9 %; Mean Corpuscular HGB Conc 32.3 g/dL (31.6-35.5); Mean Corpuscular Hemoglobin 26.8 pg (28.0-33.3); Mean Platelet Volume 10.2 fL (9.4-12.4); Monocytes # 0.9 K/mcL (0.0-1.3); Monocytes % 9.4 %; Platelet Count 198 K/mcL (140-400); Red Blood Count 3.95 M/mcL (3.82-4.97); Red Cell Distribution Width 14.2 % (11.5-14.5); Segmented Neutrophils % 65.6 %
[2017-12-23 07:43] LABS: INR 1.1; Prothrombin Time 12.7 Seconds (9.4-12.1)
[2017-12-23 07:45] LABS: Activated Partial Thrombo Time 28.1 Seconds (26.0-36.0)
[2017-12-23 07:54] LABS: BUN/Creatinine Ratio 18 (6-26); Blood Urea Nitrogen 14 mg/dL (8-23); Calcium 8.9 mg/dL (8.6-10.3); Carbon Dioxide 22 mEq/L (23-29); Chloride 111 mEq/L (98-107); Glucose 107 mg/dL (70-105); Magnesium 1.7 mg/dL (1.6-2.6); Osmolality,Calculated 289 (280-300); Potassium 3.7 mEq/L (3.5-5.1); Sodium 139 mEq/L (136-145); eGFR For Non-African Americans > 60 (> 60)
[2017-12-23] MEDS: Potassium Chloride Elixir 20 MEQ/15 ML UDC PO SCH ×3 (08:56→20:38)
[2017-12-23] MEDS: Multivit/Ca/Min/Fe/FA 1 TAB TABLET PO SCH (08:58)
[2017-12-23] MEDS: Aspirin Enteric Coated 81 MG Tablet PO SCH (08:58)
[2017-12-23] MEDS: Diltiazem CD (24hr) 120 MG CAPSULE PO SCH (08:58)
[2017-12-23] MEDS: hydroCHLOROthiazide 25 MG TABLET PO SCH (08:58)
[2017-12-23] MEDS: Cholecalciferol (D-3) 1,000 UNIT TABLET PO SCH (08:58)
[2017-12-23] MEDS: Dorzolamide/Timolol OPTH 10 ML BOTTLE BOTH EYES SCH ×2 (08:59→20:39)
--- NOTE | 2017-12-23 10:15 | Nephrology Consult Note ---
Date of Encounter: 12/23/17 Time of Encounter: 12:15 Assessment and Plan (1) Renal cysts, acquired, bilateral Current Visit: Yes Status: Chronic Incidental findings on CT abd noncontrast imaging. No stranding noted and so unlikely to be infected or as the etiology for her abd pain. I suspect there is a typo in the CT abd report as in the body of the report there were no "stones" but in the impressions where it reads "renal calculi" I suspect this should read "renal cysts" as further into the same sentence there was no "nephrolithiasis." I recommend asking Radiology to re-read the report and correct it if needed. These renal cysts are likely acquired with age, which is a risk factor for benign renal cysts. None were described as renal masses, but I'd recommend outpt follow-up CT in about 6 months. Her renal function is intact so a CT abd with IV contrast would be recommended in about 6 months. Thank you for consulting the [facility]. (2) Abdominal pain Current Visit: Yes Status: Acute Qualifiers: Abdominal location: right upper quadrant Qualified Code(s): R10.11 - Right upper quadrant pain (3) Hypertension Current Visit: No Status: Chronic Qualifiers: Hypertension type: essential hypertension Qualified Code(s): I10 - Essential (primary) hypertension History of Present Illness - Reason for Consult Consult date: 12/22/17 Requesting physician: Abigail Gil - Chief Complaint Abd pain - History of Present Illness Angela Dobbins is a very pleasant 82 y/o AAF who presented with Abd pain, that started a few days ago and located in the RUQ she affirmed. She felt it may be related to her liver. She denied ever having seen another ethanol operator before. She has no relatives on dialysis. She does not routinely take NSAIDs, she affirmed. She said her abd is feeling better today as compared to before she arrived. She thinks she may have passed a kidney stone within the last 24hr and saw what she thought was a renal stone in the commode with some traces of blood around it. She denied having active flank pains, and said that she's not passed stones previously. Nephrology was consulted for stones and cysts. Past Med Surg Social Fam HX - Past Medical History Medical history: asthma, COPD, hyperlipidemia, hypertension Additional medical history: Type II prediabetic diet controlled Psychiatric history: no psych history - Social History Smoking Status: Former smoker Smokeless Tobacco Status: No Alcohol use: none Drug use: none Medications and Allergies Albuterol Sulfate [Proair Hfa] 2 puff IH Q4H PRN 12/20/17 [History] Aspirin Enteric Coated [Aspirin EC] 81 mg PO DAILY 12/20/17 [History] Calcium Carbonate/Vitamin D3 [Oyster Shell 250 mg + Vit D Tb] 1 tab PO DAILY [History] Diltiazem CD (24hr) [Cardizem CD] 120 mg PO DAILY 12/20/17 [History] Docusate [Colace] 100 mg PO BID 12/20/17 [History] Dorzolamide/Timolol [Cosopt] 1 drop OP BID 12/20/17 [History] Latanoprost [Xalatan] 1 drop OP DAILY 12/20/17 [History] Montelukast [Singulair] 10 mg PO DAILY 12/20/17 [History] Multivitamin [One Daily Essential] 1 tab PO DAILY 12/20/17 [History] Potassium Chloride Elixir [Potassium Chloride] 5 ml PO TID 12/20/17 [History] Simvastatin [Zocor] 20 mg PO HS 12/20/17 [History] Telmisartan [Micardis] 80 mg PO DAILY 12/20/17 [History] hydroCHLOROthiazide [Hydrochlorothiazide] 25 mg PO DAILY 12/20/17 [History] 3 Allergy/AdvReac Type Severity Reaction Status Date / Time No Known Allergies Allergy Verified 12/20/17 17:54 Review of Systems All Systems: reviewed and no additional remarkable complaints except as stated Exam - Vital Signs Vital signs: Initial Vital Signs Temp Pulse Resp BP Pulse Ox 98.3 F 101 16 154/86 93 12/20/17 19:05 12/20/17 19:05 12/20/17 19:05 12/20/17 19:05 12/20/17 19:05 Vital Signs - Last 8 Hours Temp Pulse Resp BP Pulse Ox 12/23/17 07:50 16 94 12/23/17 07:23 99.2 F 82 16 120/71 95 12/23/17 04:16 16 94 12/23/17 03:23 100.1 F H 83 16 153/88 93 Intake and Output 12/22/17 12/23/17 12/23/17 23:59 07:59 15:59 Intake Total 1100 / 1100 1000 / 1000 240 / 240 Output Total 300 / 300 300 / 300 Balance 800 / 800 700 / 700 240 / 240 Intake: IV Fluids 1100 / 1100 1000 / 1000 0.9 % Sodium Chloride 1,000 ML 1000 / 1000 1000 / 1000 @ 125 mls/hr IVC .Q8H [facility] Rx#: [id number] Zosyn 3.375 GM In 0.9 % Sodium 100 / 100 Chloride (Mini-Bag +) 100 ML @ 25 mls/hr IVPB Q12HR [facility] Rx#: [id number] Oral 240 / 240 Output: Urine 300 / 300 300 / 300 Other: Meal Breakfast Percent of Meal Consumed 100% # Voids 1 Weight 66 kg Blood Glucose* 126 108 Patient Weight 12/23/17 23:59 Weight 66 kg - General Appearance General appearance: well-developed, well-nourished, appears started age EENT: ATNC, PERRL, mucous membranes moist Neck: supple Respiratory: clear Cardiology: no edema, regular rate, regular rhythm, normal S1, normal S2 Gastrointestinal: normoactive bowel sounds, no tenderness, no guarding Integumentary: no rash, warm and dry Neurologic: no focal deficit, no asterixis, alert and oriented x3 Musculoskeletal: no deformities, no erythema, no cyanosis Psychiatric: mood/affect appropriate, cooperative Results - Lab Results 12/25/17 09:10 12/25/17 09:10 Most recent lab results Calcium 8.9 mg/dL (8.6-10.3) 12/23/17 06:56 Magnesium 1.7 mg/dL (1.6-2.6) 12/23/17 06:56 I reviewed the labs, vitals, imaging, progress notes, and med list. Consult Discharge Plan - Plan Additional Instructions: Call [facility] when you get home to have them deliver oxygen equipment. [phone] Referrals: Gigi Alas MD [Primary Care Provider] - 01/01/18 11:00 am
--- NOTE | 2017-12-23 11:46 | Cardiology Progress Note ---
Date of Encounter: 12/23/17 Time of Encounter: 11:10 Assessment and Plan (1) (HFpEF) heart failure with preserved ejection fraction Current Visit: Yes Status: Acute er Cardiology: Suspected diastolic heart failure exacerbation. X-ray shows vascular congestion with blunting of the R costophrenic angle. Per discussion with Dr. Hernandez, he discussed with primary service and IVF to be stopped, Lasix started , and BNP checked. Now on Lasix 40mg IV BID. Net I&O +4590ml. Suspect respiratory status will improve with diuresis. Kidney function stable. (2) Elevated troponin Current Visit: Yes Status: Acute Per Cardiology: Troponins flat and adynamic with peak at 0.06. Suspected demand ischemia type 2. No cardiac rehabilitation consult warranted. Per review of Dr. Hernandez's note, consider stress testing once euvolemic. Discussion w patient/family: The assessment and plan as outlined above was discussed with the patient and/or family members who expressed understanding and agreement. All questions were answered. Thank you for involving us in the care of your patient. Please call with any questions. Subjective Principal diagnosis: SOB Interval history: Patient seen with family at bedside. Reports overall shortness of breath has improved since arrival. Denies any edema or swelling. Denies any chest pain or palpitations. Reports does not utilize oxygen at home. Confirms past history of COPD. Objective Vital Signs, Last 4 Hours Resp Pulse Ox 12/23/17 07:50 16 94 General: Conversant HEENT: Atraumatic, Normocephaly, Mucus Membranes Moist Neck: No JVD, Normal carotid pulses Cardiac: Reg Rate and Rhythm, Normal S1 and S2, No Murmur Lungs: Other (Diminished breath sounds throughout, crackles bilateral bases, respirations mildly labored at rest and with conversation) Neuro: Alert and responsive, No focal deficits noted Abdomen: Soft, Non-Tender Skin: No rashes noted on visualized skin Musculoskeletal: No Chest Wall Tenderness Extremities: No Clubbing, No Cyanosis, No Edema, Normal Pulses Results 12/23/17 06:56 12/23/17 06:56 Lab Results Laboratory Tests 12/23/17 12/23/17 12/23/17 06:56 06:56 06:56 Hgb 10.6 L Hct 32.8 L INR 1.1 Potassium 3.7 Creatinine 0.78 Est GFR (Non-Af Amer) > 60 Magnesium 1.7 ITS Impressions Abdomen/Pelvis CT 12/20/17 19:33 IMPRESSION: 1. No definite CT evidence of an acute intra-abdominal or intrapelvic process. 2. There are areas of skin and fat soft tissue density and thickening posterior upper right thigh and left buttock region which may be related to scarring or an acute infectious or inflammatory process. Correlate with physical inspection. 3. Diverticulosis coli without CT evidence of acute diverticulitis. 4. Bilateral urinary bladder diverticula. 5. Bilateral renal calculi. No hydronephrosis or nephrolithiasis. 6. Small volume right pleural effusion with right basilar atelectasis. Pneumonitis is a consideration. 7. Coronary artery calcifications. 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 D/ / Alejandro Bautista / Alejandro Bautista Interpreting Provider: Alejandro Bautista Chest X-Ray 12/20/17 21:05 IMPRESSION: Acute on chronic interstitial densities without view are infiltrates evident parahilar regions concerning for pneumonitis. Probable small right pleural effusion. Calcific atherosclerotic disease aorta. D/ / Alejandro Bautista / Alejandro Bautista Interpreting Provider: Alejandro Bautista Echocardiogram 12/21/17 01:14 Impressions: LVEF 60-65%. Mild left ventricular diastolic dysfunction. RV size is not optimally visualized. Function is normal by tissue Doppler. Mild-moderate tricuspid regurgitation. Moderate to severe pulmonary hypertension. TR gradient 61 mmHg. IVC is not well visualized to estimate RVSP. No prior echo for comparison. Left Ventricular Wall Motion: Rest Echo Findings All wall segments showed normal motion. Findings: Study Quality * Technically adequate exam. ECG Findings * Normal sinus rhythm. Left Ventricle * LVEF 60-65%. * Normal LV chamber size, wall thickness and function. * Mild left ventricular diastolic dysfunction. Right Ventricle * RV size is not optimally visualized. Function is normal by tissue Doppler. Left Atrium * Normal left atrial size. Right Atrium * Normal right atrial size. Mitral Valve * Normal mitral valve structure. * No mitral stenosis. * No mitral regurgitation. Aortic Valve * No aortic regurgitation. * Aortic valve not well visualized. * No aortic stenosis. Tricuspid Valve * Tricuspid valve not well visualized. * Mild-moderate tricuspid regurgitation. Pulmonic Valve * Pulmonic valve is not well visualized. * No pulmonic stenosis. * No pulmonic regurgitation. Pulmonary Artery * Pulmonary artery not well visualized. Aorta * Normally sized aortic root. Pericardium * There is no pericardial effusion present. Interatrial Septum * Interatrial septum not well evaluated. IVC * The IVC is not well evaluated. Liver Ultrasound 12/21/17 08:30 IMPRESSION: There is a 4-5 mm benign gallbladder polyp. No additional follow-up is warranted. Benign right renal cysts. Small right pleural effusion. D/ / 12/21/2017 10:13:32 Alpesh Bonilla MD / Jackie Zarco Interpreting Provider: Alpesh Bonilla MD Intake & Output 12/20/17 12/21/17 12/22/17 12/23/17 23:59 23:59 23:59 23:59 Intake Total 150 / 150 2700 / 2700 2340 / 2340 Output Total 300 / 300 300 / 300 Balance 150 / 150 2400 / 2400 2040 / 2040 Weight 63.957 kg 64.5 kg 66 kg Active Medications Acetaminophen (Tylenol) 650 mg PO Q6HR PRN PRN Reason: Mild Pain/Fever Stop: 06/21/18 23:14 Last Admin: 12/23/17 03:58 Dose: 650 mg Albuterol Sulfate (Albuterol Inhaler) 2 puff IH Q4H PRN PRN Reason: Shortness Of Breath Stop: 06/22/18 01:29 Albuterol/Ipratropium (Duoneb) 3 ml IH [id number] [facility] Stop: 06/23/18 12:01 Last Admin: 12/23/17 10:53 Dose: 3 ml Aspirin (Aspirin Ec) 81 mg PO DAILY [facility] Stop: 06/22/18 09:01 Last Admin: 12/23/17 08:58 Dose: 81 mg Calcium Carbonate (Tums) 500 mg PO DAILY [facility] Stop: 06/23/18 09:01 Last Admin: 12/23/17 08:56 Dose: 500 mg Diltiazem HCl (Cardizem Cd) 120 mg PO DAILY [facility] Stop: 06/22/18 09:01 Last Admin: 12/23/17 08:58 Dose: 120 mg Docusate Sodium (Colace) 100 mg PO BID [facility] PRN Reason: Protocol Stop: 06/22/18 21:01 Last Admin: 12/23/17 08:58 Dose: 100 mg Dorzolamide/Timolol (Cosopt) 1 drop BOTH EYES BID [facility] Stop: 06/23/18 21:01 Last Admin: 12/23/17 08:59 Dose: 1 drop Furosemide (Lasix) 40 mg IVP BID [facility] Stop: 06/24/18 21:01 Heparin Sodium (Porcine) (Heparin) 5,000 unit SQ Q12HCO [facility] Stop: 06/22/18 18:01 Last Admin: 12/23/17 06:27 Dose: 5,000 unit Hydrochlorothiazide (Hydrochlorothiazide) 25 mg PO DAILY [facility] PRN Reason: Protocol Stop: 06/23/18 09:01 Last Admin: 12/23/17 08:58 Dose: 25 mg Piperacillin Sod/Tazobactam (Sod 3.375 gm/ Sodium Chloride) 100 mls @ 25 mls/ hr IVPB Q12HR [facility] Stop: 06/23/18 18:01 Last Infusion: 12/23/17 10:29 Dose: Infused Latanoprost (Xalatan) 1 drop RIGHT EYE HS [facility] PRN Reason: Protocol Stop: 06/23/18 21:01 Last Admin: 12/22/17 21:29 Dose: 1 drop Losartan Potassium (Cozaar) 100 mg PO DAILY [facility] Stop: 06/22/18 09:01 Last Admin: 12/23/17 08:58 Dose: 100 mg Montelukast Sodium (Singulair) 10 mg PO DAILY [facility] Stop: 06/22/18 09:01 Last Admin: 12/23/17 08:58 Dose: 10 mg Morphine Sulfate (Morphine Sulfate) 2 mg IVP Q4HR PRN; Protocol PRN Reason: Severe Pain Stop: 06/22/18 12:06 Last Admin: 12/21/17 16:56 Dose: 2 mg Multivitamins/Calcium (Thera M Plus) 1 tab PO DAILY [facility] Stop: 06/23/18 09:01 Last Admin: 12/23/17 08:58 Dose: 1 tab Naloxone HCl (Narcan) 0.4 mg IVP Q2MIN PRN PRN Reason: SEE COMMENTS Stop: 06/21/18 23:14 Ondansetron HCl (Zofran Odt) 4 mg SL Q8HR PRN PRN Reason: Nausea And Vomiting Stop: 06/21/18 23:14 Potassium Chloride (Potassium Chloride) 6.666 meq PO TID [facility] Stop: 06/22/18 15:01 Last Admin: 12/23/17 08:56 Dose: 6.666 meq Simvastatin (Zocor) 20 mg PO HS [facility] PRN Reason: Protocol Stop: 06/22/18 21:01 Last Admin: 12/22/17 21:30 Dose: 20 mg Vitamin D (Vitamin D) 1,000 unit PO DAILY [facility] Stop: 06/23/18 09:01 Last Admin: 12/23/17 08:58 Dose: 1,000 unit - Imaging and Cardiology Echo: report reviewed Consult Discharge Plan - Plan Referrals: Gigi Alas MD [Primary Care Provider] - 01/01/18 11:00 am
--- NOTE | 2017-12-23 12:49 | Internal Med Progress Note ---
Hospitalist Progress Note - Encounter Date of Encounter: 12/23/17 Time of Encounter: 12:49 - Subjective Interval History: Mrs. Dobbins is an 82-year-old -[place] female, who was admitted with intermittent right-sided abdominal pain worsening with movement without nausea vomiting or diarrhea. General workup was completed as well as a liver ultrasound which showed a 45 mm benign gallbladder polyp, benign right renal cyst small right pleural effusion. - Exam Vitals: Temp Pulse Resp BP Pulse Ox 97.6 F 87 16 148/84 95 12/23/17 12:11 12/23/17 12:11 12/23/17 12:11 12/23/17 12:11 12/23/17 12:11 Exam: Exam: PHYSICAL EXAMINATION: GENERAL APPEARANCE: The patient is alert, oriented and in no acute distress. HEENT: Head is normocephalic. The sinuses are nontender. Pupils are equal and reactive. The nares are patent. Oropharynx clear without lesions. NECK: Supple without lymphadenopathy. HEART: Regular rate and rhythm. LUNGS: No crackles or wheezes are heard. ABDOMEN: Soft, tender to palpation on the right side, non-distended with good bowel sounds heard. Inguinal area is normal. EXTREMITIES: Without cyanosis, clubbing or edema. NEUROLOGICAL: Gross nonfocal. SKIN: Warm and dry without any rash. - Assessment and Plan (1) (HFpEF) heart failure with preserved ejection fraction Current Visit: Yes Status: Acute Assessment and Plan: Cardiology following. On Lasix 40 mg IV BID. BNP. (2) Type II diabetes mellitus Current Visit: Yes Status: Acute (3) Abdominal pain Current Visit: Yes Status: Acute Assessment and Plan: cont prn pain management. CT did not show acute injury. (4) Elevated troponin Current Visit: Yes Status: Acute Assessment and Plan: Patient denies any chest pain, EKG no ST acute ST-T change. Chest x ray. XR/XR chest 1V portable IMPRESSION: Acute on chronic interstitial densities without view are infiltrates evident parahilar regions concerning for pneumonitis. Probable small right pleural effusion. Calcific atherosclerotic disease aorta. (5) Renal cysts, acquired, bilateral Current Visit: Yes Status: Chronic Assessment and Plan: not calculi. Aviating radiology to update CT abd reading/dictation. (6) Pneumonitis Current Visit: No Status: Chronic Assessment and Plan: T revealed a possible pneumonitis, however, patient has no respiratory complaints, follow-up as outpatient. (7) Hypokalemia Current Visit: Yes Status: Resolved Assessment and Plan: Replaced, will check renal function in am. DVT Prophylaxis: heparin - Summary of Assessment and Plan Summary of Assessment and Plan: Mrs. Dobbins is an 82-year-old -[place] female who was admitted with right-sided abdominal and back pain. Today she continues to have rate her pain as a 10 on a scale of 10 with right lower and upper abdominal pain and right sided back pain. She currently is receiving morphine every 4 hours and we will continue that she is also using an ice pack to help relieve some of her signs and symptoms liver ultrasound showed a 45 mm gallbladder polyp right renal cyst and small right pleural effusion. We will continue with her current IV antibiotics. Troponins remained elevated 2 we will consult cardiology. Echo showed a LE with EF of 60-65%, mild tricuspid regurg which is chronic. - Time Spent with Patient Total time spent is greater than 50% in coordination of care (as documented) at patient's floor/unit and/or counseling patient: less than 15 minutes Internal Medicine: Result - Labs CBC & Chem 7: 12/23/17 06:56 12/23/17 06:56 Labs: Short CBC 12/23/17 Range/Units 06:56 WBC 9.2 (4.3-11.1) K/mcL Hgb 10.6 L (11.5-15.4) g/dL Hct 32.8 L (35.3-44.9) % Plt Count 198 (140-400) K/mcL Neutrophils # 6.0 (1.6-8.9) K/mcL BMP 12/23/17 06:56 Sodium 139 Potassium 3.7 Chloride 111 H Carbon Dioxide 22 L BUN 14 Creatinine 0.78 Glucose 107 H Calcium 8.9 - ABG Interpretation ABG results: PT/INR, D-dimer PT 12.7 Seconds (9.4-12.1) H 12/23/17 06:56 Consult Discharge Plan - Plan Referrals: Gigi Alas MD [Primary Care Provider] - 01/01/18 11:00 am (3) Abdominal pain Qualifiers: Abdominal location: right upper quadrant Qualified Code(s): R10.11 - Right upper quadrant pain
[2017-12-23] MEDS: Furosemide 40 MG/4 ML VIAL IVP SCH (20:39)
[2017-12-23] MEDS: Latanoprost 2.5 ML BOTTLE RIGHT EYE SCH (20:39)
[2017-12-24] MEDS: Ipratropium/Albuterol Neb 3 ML IH SCH ×7 (00:31→23:29)
[2017-12-24] MEDS: Piperacillin/Tazobactam 3.375 GM in 0.9 % Sodium Chloride Mini Bag 100 ML IVPB SCH ×3 (06:18→23:29)
[2017-12-24] MEDS: *HR* Heparin 5,000 UNIT/ML VIAL SQ SCH ×2 (06:18→17:18)
[2017-12-24] MEDS: Acetaminophen 325 MG TABLET PO PRN ×2 (06:18→18:06)
[2017-12-24 06:36] LABS: BUN/Creatinine Ratio 15 (6-26); Blood Urea Nitrogen 14 mg/dL (8-23); Calcium 9.4 mg/dL (8.6-10.3); Carbon Dioxide 24 mEq/L (23-29); Chloride 105 mEq/L (98-107); Glucose 123 mg/dL (70-105); Osmolality,Calculated 288 (280-300); Potassium 3.4 mEq/L (3.5-5.1); Sodium 138 mEq/L (136-145); eGFR For Non-African Americans 57 (> 60)
[2017-12-24] MEDS: Furosemide 40 MG/4 ML VIAL IVP SCH ×2 (07:49→21:19)
[2017-12-24] MEDS: Potassium Chloride Elixir 20 MEQ/15 ML UDC PO SCH ×2 (07:50→15:01)
[2017-12-24] MEDS: Aspirin Enteric Coated 81 MG Tablet PO SCH (07:55)
[2017-12-24] MEDS: hydroCHLOROthiazide 25 MG TABLET PO SCH (07:55)
[2017-12-24] MEDS: Diltiazem CD (24hr) 120 MG CAPSULE PO SCH (07:56)
[2017-12-24] MEDS: Cholecalciferol (D-3) 1,000 UNIT TABLET PO SCH (07:56)
[2017-12-24] MEDS: Dorzolamide/Timolol OPTH 10 ML BOTTLE BOTH EYES SCH ×2 (07:56→21:19)
[2017-12-24] MEDS: Multivit/Ca/Min/Fe/FA 1 TAB TABLET PO SCH (07:56)
--- NOTE | 2017-12-24 08:47 | Cardiology Progress Note ---
Date of Encounter: 12/24/17 Time of Encounter: 08:45 Assessment and Plan (1) (HFpEF) heart failure with preserved ejection fraction Current Visit: Yes Status: Acute er Cardiology: Suspected diastolic heart failure exacerbation. X-ray showed vascular congestion with blunting of the R costophrenic angle. Now on Lasix 40mg IV BID. Net I&O +3930ml. BNP only 68. Kidney function stable. Resp status improved. Has Mod-sev pulm HTN on echo. Cardiology will s/o, reconsult PRN, f/u arranged. (2) Elevated troponin Current Visit: Yes Status: Acute Per Cardiology: Troponins flat and adynamic with peak at 0.06. Suspected demand ischemia type 2. No cardiac rehabilitation consult warranted. Per review of Dr. Hernandez's note, consider stress testing once euvolemic-- can be done in outpatient setting. CP free. Discussion w patient/family: The assessment and plan as outlined above was discussed with the patient and/or family members who expressed understanding and agreement. All questions were answered. Thank you for involving us in the care of your patient. Please call with any questions. Subjective Principal diagnosis: SOB Interval history: Patient seen with family at bedside. Reports overall shortness of breath has improved since arrival. Denies any edema or swelling. Denies any chest pain or palpitations. Reports does not utilize oxygen at home. Confirms past history of COPD. Objective Vital Signs, Last 4 Hours Temp Pulse Resp BP Pulse Ox 12/24/17 07:38 16 92 12/24/17 07:02 98.0 F 91 15 107/71 96 General: Conversant, No Apparent Distress HEENT: Atraumatic, Normocephaly, Mucus Membranes Moist Neck: No JVD, Normal carotid pulses Cardiac: Reg Rate and Rhythm, Normal S1 and S2, No Murmur Lungs: Other (Diminished breath sounds throughout, crackles to bases) Neuro: Alert and responsive, No focal deficits noted Abdomen: Soft, Non-Tender Skin: No rashes noted on visualized skin Musculoskeletal: No Chest Wall Tenderness Extremities: No Clubbing, No Cyanosis, No Edema, Normal Pulses Results 12/23/17 06:56 12/24/17 05:15 Lab Results Laboratory Tests 12/23/17 12/23/17 12/24/17 06:56 06:56 05:15 Potassium 3.4 L Creatinine 0.94 Est GFR (Non-Af Amer) 57 L Magnesium 1.7 B-Natriuretic Peptide 68 Active Medications Acetaminophen (Tylenol) 650 mg PO Q6HR PRN PRN Reason: Mild Pain/Fever Stop: 06/21/18 23:14 Last Admin: 12/24/17 06:18 Dose: 650 mg Albuterol Sulfate (Albuterol Inhaler) 2 puff IH Q4H PRN PRN Reason: Shortness Of Breath Stop: 06/22/18 01:29 Albuterol/Ipratropium (Duoneb) 3 ml IH [id number] [facility] Stop: 06/23/18 12:01 Last Admin: 12/24/17 07:38 Dose: 3 ml Aspirin (Aspirin Ec) 81 mg PO DAILY [facility] Stop: 06/22/18 09:01 Last Admin: 12/24/17 07:55 Dose: 81 mg Calcium Carbonate (Tums) 500 mg PO DAILY [facility] Stop: 06/23/18 09:01 Last Admin: 12/24/17 07:55 Dose: 500 mg Diltiazem HCl (Cardizem Cd) 120 mg PO DAILY [facility] Stop: 06/22/18 09:01 Last Admin: 12/24/17 07:56 Dose: 120 mg Docusate Sodium (Colace) 100 mg PO BID [facility] PRN Reason: Protocol Stop: 06/22/18 21:01 Last Admin: 12/24/17 07:55 Dose: 100 mg Dorzolamide/Timolol (Cosopt) 1 drop BOTH EYES BID [facility] Stop: 06/23/18 21:01 Last Admin: 12/24/17 07:56 Dose: 1 drop Furosemide (Lasix) 40 mg IVP BID [facility] Stop: 06/24/18 21:01 Last Admin: 12/24/17 07:49 Dose: 40 mg Heparin Sodium (Porcine) (Heparin) 5,000 unit SQ Q12HCO [facility] Stop: 06/22/18 18:01 Last Admin: 12/24/17 06:18 Dose: 5,000 unit Hydrochlorothiazide (Hydrochlorothiazide) 25 mg PO DAILY [facility] PRN Reason: Protocol Stop: 06/23/18 09:01 Last Admin: 12/24/17 07:55 Dose: 25 mg Piperacillin Sod/Tazobactam (Sod 3.375 gm/ Sodium Chloride) 100 mls @ 25 mls/ hr IVPB Q12HR [facility] Stop: 06/23/18 18:01 Last Admin: 12/24/17 06:18 Dose: 25 mls/hr Latanoprost (Xalatan) 1 drop RIGHT EYE HS [facility] PRN Reason: Protocol Stop: 06/23/18 21:01 Last Admin: 12/23/17 20:39 Dose: 1 drop Losartan Potassium (Cozaar) 100 mg PO DAILY [facility] Stop: 06/22/18 09:01 Last Admin: 12/24/17 07:55 Dose: 100 mg Montelukast Sodium (Singulair) 10 mg PO DAILY [facility] Stop: 06/22/18 09:01 Last Admin: 12/24/17 07:55 Dose: 10 mg Morphine Sulfate (Morphine Sulfate) 2 mg IVP Q4HR PRN; Protocol PRN Reason: Severe Pain Stop: 06/22/18 12:06 Last Admin: 12/21/17 16:56 Dose: 2 mg Multivitamins/Calcium (Thera M Plus) 1 tab PO DAILY [facility] Stop: 06/23/18 09:01 Last Admin: 12/24/17 07:56 Dose: 1 tab Naloxone HCl (Narcan) 0.4 mg IVP Q2MIN PRN PRN Reason: SEE COMMENTS Stop: 06/21/18 23:14 Ondansetron HCl (Zofran Odt) 4 mg SL Q8HR PRN PRN Reason: Nausea And Vomiting Stop: 06/21/18 23:14 Potassium Chloride (Potassium Chloride) 6.666 meq PO TID [facility] Stop: 06/22/18 15:01 Last Admin: 12/24/17 07:50 Dose: 6.666 meq Simvastatin (Zocor) 20 mg PO HS [facility] PRN Reason: Protocol Stop: 06/22/18 21:01 Last Admin: 12/23/17 20:38 Dose: 20 mg Vitamin D (Vitamin D) 1,000 unit PO DAILY [facility] Stop: 06/23/18 09:01 Last Admin: 12/24/17 07:56 Dose: 1,000 unit Consult Discharge Plan - Plan Referrals: Gigi Alas MD [Primary Care Provider] - 01/01/18 11:00 am
--- NOTE | 2017-12-24 17:55 | Event Note ---
Date of Encounter: 12/24/17 Time of Encounter: 12:00 Intreim noted. Renal consulted for renal cysts which are benign in nature and typical at her age. Renal cysts definitely not the cause of her abd pain. Renal fxn remains very stable. Jun sign off, can followup with pcp or nephrology for repeat imaging in 6 months.
--- NOTE | 2017-12-24 19:28 | Internal Med Progress Note ---
Hospitalist Progress Note - Encounter Date of Encounter: 12/24/17 Time of Encounter: 19:29 - Subjective Interval History: Mrs. Dobbins is an 82-year-old -[place] female, who was admitted with intermittent right-sided abdominal pain worsening with movement without nausea vomiting or diarrhea. General workup was completed as well as a liver ultrasound which showed a 45 mm benign gallbladder polyp, benign right renal cyst small right pleural effusion. - Exam Vitals: Temp Pulse Resp BP Pulse Ox 99.5 F 103 16 108/65 96 12/24/17 19:03 12/24/17 19:03 12/24/17 19:03 12/24/17 19:03 12/24/17 19:03 Exam: Exam: PHYSICAL EXAMINATION: GENERAL APPEARANCE: The patient is alert, oriented and in no acute distress. HEENT: Head is normocephalic. The sinuses are nontender. Pupils are equal and reactive. The nares are patent. Oropharynx clear without lesions. NECK: Supple without lymphadenopathy. HEART: Regular rate and rhythm. LUNGS: No crackles or wheezes are heard. ABDOMEN: Soft, tender to palpation on the right side, non-distended with good bowel sounds heard. Inguinal area is normal. EXTREMITIES: Without cyanosis, clubbing or edema. NEUROLOGICAL: Gross nonfocal. SKIN: Warm and dry without any rash. - Assessment and Plan (1) (HFpEF) heart failure with preserved ejection fraction Current Visit: Yes Status: Acute Assessment and Plan: Seen by cardiology and recommended diuresing. On Lasix 40 mg IV BId. Pt not usually on oxygen saturation dropped to 81% with minimal activity today 12/24/17. Pt will benefit from few more days of Lasix and reassess home oxygen need. (2) Type II diabetes mellitus Current Visit: Yes Status: Acute Assessment and Plan: SSI insulin for now. Glucose controlled. (3) Abdominal pain Current Visit: Yes Status: Acute Assessment and Plan: cont prn pain management. CT did not show acute injury. (4) Elevated troponin Current Visit: Yes Status: Acute Assessment and Plan: Patient denies any chest pain, EKG no ST acute ST-T change. Bump in troponin due to volume overload. Chest x ray. XR/XR chest 1V portable IMPRESSION: Acute on chronic interstitial densities without view are infiltrates evident parahilar regions concerning for pneumonitis. Probable small right pleural effusion. Calcific atherosclerotic disease aorta. (5) Renal cysts, acquired, bilateral Current Visit: Yes Status: Chronic Assessment and Plan: not calculi. Awiating radiology to update CT abd reading/dictation (6) Pneumonitis Current Visit: No Status: Chronic Assessment and Plan: T revealed a possible pneumonitis, however, patient has no respiratory complaints, follow-up as outpatient. (7) Hypokalemia Current Visit: Yes Status: Resolved Assessment and Plan: Will give PO K supplement DVT Prophylaxis: heparin - Summary of Assessment and Plan Summary of Assessment and Plan: Mrs. Dobbins is an 82-year-old -[place] female who was admitted with right-sided abdominal and back pain. On admissioin she rated her pain as a 10 on a scale of 10 with right lower and upper abdominal pain and right sided back pain. Troponins slightly elevated 2 and likely due to CHF per consult cardiology. Echo showed a LE with EF of 60-65%, mild tricuspid regurg which is chronic. - Time Spent with Patient Total time spent is greater than 50% in coordination of care (as documented) at patient's floor/unit and/or counseling patient: less than 15 minutes Plan of Care Discussed with: patient Internal Medicine: Result - Labs CBC & Chem 7: 12/23/17 06:56 12/24/17 05:15 Labs: BMP 12/24/17 05:15 Sodium 138 Potassium 3.4 L Chloride 105 Carbon Dioxide 24 BUN 14 Creatinine 0.94 Glucose 123 H Calcium 9.4 - ABG Interpretation ABG results: PT/INR, D-dimer PT 12.7 Seconds (9.4-12.1) H 12/23/17 06:56 Consult Discharge Plan - Plan Additional Instructions: [facility] get home to have them deliver oxygen equipment. Referrals: Gigi Alas MD [Primary Care Provider] - 01/01/18 11:00 am (3) Abdominal pain Qualifiers: Abdominal location: right upper quadrant Qualified Code(s): R10.11 - Right upper quadrant pain
[2017-12-24] MEDS: Latanoprost 2.5 ML BOTTLE RIGHT EYE SCH (21:20)
[2017-12-25] MEDS: Ipratropium/Albuterol Neb 3 ML IH SCH ×5 (03:55→20:13)
[2017-12-25] MEDS: *HR* Heparin 5,000 UNIT/ML VIAL SQ SCH ×2 (05:33→17:35)
[2017-12-25] MEDS: Acetaminophen 325 MG TABLET PO PRN ×2 (05:35→19:31)
[2017-12-25] MEDS: Furosemide 40 MG/4 ML VIAL IVP SCH (08:24)
[2017-12-25] MEDS: Piperacillin/Tazobactam 3.375 GM in 0.9 % Sodium Chloride Mini Bag 100 ML IVPB SCH ×2 (08:25→14:57)
[2017-12-25] MEDS: Cholecalciferol (D-3) 1,000 UNIT TABLET PO SCH (08:25)
[2017-12-25] MEDS: Diltiazem CD (24hr) 120 MG CAPSULE PO SCH (08:25)
[2017-12-25] MEDS: hydroCHLOROthiazide 25 MG TABLET PO SCH (08:25)
[2017-12-25] MEDS: Aspirin Enteric Coated 81 MG Tablet PO SCH (08:25)
[2017-12-25] MEDS: Multivit/Ca/Min/Fe/FA 1 TAB TABLET PO SCH (08:25)
[2017-12-25] MEDS: Dorzolamide/Timolol OPTH 10 ML BOTTLE BOTH EYES SCH ×2 (08:54→20:24)
[2017-12-25 09:33] LABS: Basophils % 0.5 %; Eosinophils # 0.3 K/mcL (0.0-0.6); Eosinophils % 4.3 %; Hemoglobin 11.7 g/dL (11.5-15.4); Immature Granulocytes % 0.2 % (0-4); Immature Platelets 2.7 % (1.1-6.1); Lymphocytes # 1.8 K/mcL (0.6-4.6); Lymphocytes % 28.4 %; Mean Corpuscular HGB Conc 32.5 g/dL (31.6-35.5); Mean Corpuscular Hemoglobin 26.9 pg (28.0-33.3); Mean Corpuscular Volume 82.8 fL (83.0-100.0); Mean Platelet Volume 9.8 fL (9.4-12.4); Monocytes # 0.7 K/mcL (0.0-1.3); Monocytes % 11.6 %; Neutrophils # 3.5 K/mcL (1.6-8.9); Platelet Count 236 K/mcL (140-400); Red Blood Count 4.35 M/mcL (3.82-4.97); Red Cell Distribution Width 14.2 % (11.5-14.5)
[2017-12-25 09:47] LABS: Calcium 9.5 mg/dL (8.6-10.3); Potassium 3.3 mEq/L (3.5-5.1)
--- NOTE | 2017-12-25 10:18 | Internal Med Progress Note ---
Hospitalist Progress Note - Encounter Date of Encounter: 12/25/17 Time of Encounter: :18 - Exam Vitals: Temp Pulse Resp BP Pulse Ox 97.7 F 96 16 107/71 94 12/25/17 06:33 12/25/17 06:33 12/25/17 07:50 12/25/17 06:33 12/25/17 07:50 Exam: Exam: PHYSICAL EXAMINATION: GENERAL APPEARANCE: The patient is alert, oriented and in no acute distress. HEENT: Head is normocephalic. The sinuses are nontender. Pupils are equal and reactive. The nares are patent. Oropharynx clear without lesions. NECK: Supple without lymphadenopathy. HEART: Regular rate and rhythm. LUNGS: No crackles or wheezes are heard. ABDOMEN: Soft, tender to palpation on the right side, non-distended with good bowel sounds heard. Inguinal area is normal. EXTREMITIES: Without cyanosis, clubbing or edema. NEUROLOGICAL: Gross nonfocal. SKIN: Warm and dry without any rash. - Assessment and Plan (1) Abdominal pain Current Visit: Yes Status: Acute Assessment and Plan: Continues with right upper abdominal pain or abdominal pain denies having any bowel movement today states she did have bowel movement prior to being admitted day before yesterday. Liver ultrasound shows that she is positive for gallbladder polyp, and was without cholelithiasis. She also is positive for right pleural effusion and a small right kidney stone. We will continue with her pain management with morphine every 4 hours and monitor 12/25- currently denies any abdominal pain patient states she did have a large bowel movement which she states she has felt better. (2) Elevated troponin Current Visit: Yes Status: Acute Assessment and Plan: Troponins have remained elevated and trended 2 however decreasing to 0.04 on . Potassium has normalized to 3.9 chloride to remain slightly elevated at 108. Echo shows an LVE of 60-65%, mild left ventricular diastolic dysfunction, mild to moderate tricuspid regurgitation, and moderate to severe pulmonary hypertension. Cardiology has been consulted suspect demand ischemia-recommending outpatient stress test once euvolemic and chest pain-free (3) Diabetes Current Visit: No Status: Chronic Assessment and Plan: Sugar stable at this time continue with Accu-Cheks before meals at bedtime and slight scale insulin (4) Hypertension Current Visit: No Status: Chronic Assessment and Plan: Stable at this time Will continue current medications and continue to monitor (5) DVT prophylaxis Current Visit: Yes Status: Acute Assessment and Plan: Per protocol (6) Pneumonitis Current Visit: No Status: Chronic Assessment and Plan: Currently on IV antibiotics of Zosyn, She remains afebrile we will continue with her IV ATB (7) Hypokalemia Current Visit: Yes Status: Resolved Assessment and Plan: Potassium was low this a.m. we will replace and monitor We will continue with daily labs Check magnesium in a.m. (8) GILMAR (acute kidney injury) Current Visit: Yes Status: Acute Assessment and Plan: 1 creatinine 1.3 to GFR is 47 baseline of less than 1-she has been receiving IV Lasix as well as hydrochlorothiazide we will hold diuretics for now and recheck chemistry in a.m. Monitor intake and output Avoid nephrotoxins Renally dose antibiotics - Time Spent with Patient Total time spent is greater than 50% in coordination of care (as documented) at patient's floor/unit and/or counseling patient: Internal Medicine: Result - Labs CBC & Chem 7: 12/25/17 09:10 12/25/17 09:10 Labs: Short CBC 12/25/17 Range/Units 09:10 WBC 6.3 (4.3-11.1) K/mcL Hgb 11.7 (11.5-15.4) g/dL Hct 36.0 (35.3-44.9) % Plt Count 236 (140-400) K/mcL Neutrophils # 3.5 (1.6-8.9) K/mcL BMP 12/25/17 09:10 Sodium 136 Potassium 3.3 L Chloride 99 Carbon Dioxide 26 BUN 23 Creatinine 1.32 H Glucose 126 H Calcium 9.5 - ABG Interpretation ABG results: PT/INR, D-dimer PT 12.7 Seconds (9.4-12.1) H 12/23/17 06:56 Consult Discharge Plan - Plan Additional Instructions: Call [facility] when you get home to have them deliver oxygen equipment. [phone] Referrals: Gigi Alas MD [Primary Care Provider] - 01/01/18 11:00 am (1) Abdominal pain Qualifiers: Abdominal location: right upper quadrant Qualified Code(s): R10.11 - Right upper quadrant pain (3) Diabetes Qualifiers: Diabetes mellitus type: type 2 Diabetes mellitus truck terminal manager insulin use: without truck terminal manager use Diabetes mellitus complication status: with unspecified complications Qualified Code(s): E11.8 - Type 2 diabetes mellitus with unspecified complications (4) Hypertension Qualifiers: Hypertension type: essential hypertension Qualified Code(s): I10 - Essential (primary) hypertension
[2017-12-25] MEDS ORDERED: 0.9 % Sodium Chloride 1,000 ML IVC SCH (15:00)
[2017-12-25] MEDS ORDERED: 0.9 % Sodium Chloride 500 ML ONE (15:24)
[2017-12-25] MEDS ORDERED: Piperacillin/Tazobactam 3.375 GM in 0.9 % Sodium Chloride Mini Bag 100 ML IVPB SCH (18:00)
[2017-12-25] MEDS: Latanoprost 2.5 ML BOTTLE RIGHT EYE SCH (20:24)
[2017-12-26] MEDS: Ipratropium/Albuterol Neb 3 ML IH SCH ×4 (00:15→11:01)
[2017-12-26] MEDS: *HR* Heparin 5,000 UNIT/ML VIAL SQ SCH (05:09)
[2017-12-26 06:00] LABS: Basophils % 0.6 %; Eosinophils # 0.3 K/mcL (0.0-0.6); Eosinophils % 4.4 %; Hematocrit 34.5 % (35.3-44.9); Hemoglobin 11.1 g/dL (11.5-15.4); Immature Granulocytes % 0.3 % (0-4); Lymphocytes # 1.8 K/mcL (0.6-4.6); Lymphocytes % 28.7 %; Mean Corpuscular HGB Conc 32.2 g/dL (31.6-35.5); Mean Corpuscular Volume 83.9 fL (83.0-100.0); Mean Platelet Volume 9.8 fL (9.4-12.4); Monocytes # 0.8 K/mcL (0.0-1.3); Monocytes % 13.3 %; Neutrophils # 3.2 K/mcL (1.6-8.9); Platelet Count 202 K/mcL (140-400); Red Blood Count 4.11 M/mcL (3.82-4.97); Red Cell Distribution Width 14.1 % (11.5-14.5); Segmented Neutrophils % 52.7 %
[2017-12-26 06:24] LABS: Calcium 9.3 mg/dL (8.6-10.3); Potassium 3.7 mEq/L (3.5-5.1)
[2017-12-26] MEDS ORDERED: Furosemide 20 MG/2 ML VIAL IVP SCH (09:00)
[2017-12-26] MEDS: Multivit/Ca/Min/Fe/FA 1 TAB TABLET PO SCH (11:04)
[2017-12-26] MEDS: Cholecalciferol (D-3) 1,000 UNIT TABLET PO SCH (11:04)
[2017-12-26] MEDS: Diltiazem CD (24hr) 120 MG CAPSULE PO SCH (11:04)
[2017-12-26] MEDS: Aspirin Enteric Coated 81 MG Tablet PO SCH (11:04)
[2017-12-26] MEDS: Dorzolamide/Timolol OPTH 10 ML BOTTLE BOTH EYES SCH (11:05)
--- NOTE | 2017-12-26 11:25 | Discharge Summary ---
- NOTES TO OUTPATIENT PROVIDER Notes to Outpatient Provider: diastolic HF- was given lasix and resp state improved- GILMAR from lasix - held and resumed at lower dose- monitor chemistry as outpatient -. cardiac stress test as outpatient. renal cyst -outpt follow-up CT in about 6 months. Her renal function is intact so a CT abd with IV contrast would be recommended in about 6 months. Orders not resulted at time of discharge: Pending orders 12/27/17 04:00 CBC [Complete Blood Count] [HEME] AM 0400 12/28/17 04:00 CBC [Complete Blood Count] [HEME] AM 0400 Date of Encounter: 12/26/17 Time of Encounter: 11:22 - Discharge Diagnosis (1) Abdominal pain Priority: Primary Status: Acute Qualifiers: Abdominal location: right upper quadrant Qualified Code(s): R10.11 - Right upper quadrant pain (2) Elevated troponin Priority: Secondary Status: Acute (3) Diabetes Priority: Secondary Status: Chronic Qualifiers: Diabetes mellitus type: type 2 Diabetes mellitus senior living insulin use: without exterminator helper termite use Diabetes mellitus complication status: with unspecified complications Qualified Code(s): E11.8 - Type 2 diabetes mellitus with unspecified complications (4) Hypertension Priority: Secondary Status: Chronic Qualifiers: Hypertension type: essential hypertension Qualified Code(s): I10 - Essential (primary) hypertension (5) Pneumonitis Priority: Secondary Status: Chronic (6) Hypokalemia Priority: Secondary Status: Resolved (7) GILMAR (acute kidney injury) Priority: Secondary Status: Acute Hospital course: Ms. Dobbins is a 82 year old female past medical hx of asthma DM HTN presented with abd pain normal CMP and liver panel she did have an elevated troponin CT of abd with possible pneumonitis . Liver ultrasound shows that she is positive for gallbladder polyp, and was without cholelithiasis. She also is positive for right pleural effusion and a small right kidney stone.Echo shows an LVE of 60-65%, mild left ventricular diastolic dysfunction, mild to moderate tricuspid regurgitation, and moderate to severe pulmonary hypertension. Cardiology and nephrology consulted - evidence of diastolic heart failure exacerbation. X-ray shows vascular congestion with blunting of the R costophrenic angle. She was given IV lasix and subsequently developed IGLMAR Lasix was held and given gentle fluids and GILMAR resolved. Nephrology was consulted for renal cyst - recommends outpat follow up CT in 6 mos . - Patient had several large BM and abd pain resolved. She tolerated oral intake Advised to follow up with cardiology and PCP she is hemodynamically stable and ready for discharge Discharge discussed with: patient - Time Spent with Patient Total time spent providing and/or coordinating discharge services: - Discharge Medications Prescriptions: Furosemide [Lasix] 20 mg PO DAILY #30 tablet Home Medications: Albuterol Sulfate [Proair Hfa] 2 puff IH Q4H PRN 12/20/17 [History] Aspirin Enteric Coated [Aspirin EC] 81 mg PO DAILY 12/20/17 [History] Calcium Carbonate/Vitamin D3 [Oyster Shell 250 mg + Vit D Tb] 1 tab PO DAILY [History] Diltiazem CD (24hr) [Cardizem CD] 120 mg PO DAILY 12/20/17 [History] Docusate [Colace] 100 mg PO BID 12/20/17 [History] Dorzolamide/Timolol [Cosopt] 1 drop OP BID 12/20/17 [History] Latanoprost [Xalatan] 1 drop OP DAILY 12/20/17 [History] Montelukast [Singulair] 10 mg PO DAILY 12/20/17 [History] Multivitamin [One Daily Essential] 1 tab PO DAILY 12/20/17 [History] Potassium Chloride Elixir [Potassium Chloride] 5 ml PO TID 12/20/17 [History] Simvastatin [Zocor] 20 mg PO HS 12/20/17 [History] Telmisartan [Micardis] 80 mg PO DAILY 12/20/17 [History] Furosemide [Lasix] 20 mg PO DAILY #30 tablet 12/26/17 [Rx] Allergies/Adverse Reactions: 3 Allergy/AdvReac Type Severity Reaction Status Date / Time No Known Allergies Allergy Verified 12/20/17 17:54 Date of admission: 12/22/17 16:23 Primary care physician: Gigi Alas MD Discharging clinician: Natasha Luis Anticipated date of discharge: 12/26/17 - Constitutional Vitals: Temp Pulse Resp BP Pulse Ox 98.7 F 89 16 114/75 95 12/26/17 06:50 12/26/17 06:50 12/26/17 07:33 12/26/17 06:50 12/26/17 07:33 General appearance: Present: cooperative, A&O X 3, pleasant Exam: see above - Head Head exam: Present: atraumatic, normocephalic - Eye Eye exam: Present: PERRL, conjuntiva pink, sclera anicteric Pupils: Present: PERRL - Neck Neck exam general surgery: Present: supple, trachea midline. Absent: lymphadenopathy - Respiratory Respiratory exam: Present: CTAB. Absent: accessory muscle use, rales, rhonchi, wheezes - Cardiovascular Cardiovascular exam: Present: RRR, +S1, +S2. Absent: diastolic murmur, gallop, rubs, systolic murmur - GI/Abdominal GI/Abdominal exam: Present: normal bowel sounds, soft, no peritoneal signs. Absent: distended, tenderness - Extremities Exam Extremities exam: Present: warm, radial pulses palpable and symmetrical. Absent : calf tenderness, cyanotic, pedal edema - Neurological Exam Neurological exam: Present: CN II-XII intact, oriented X3, no focal deficits. Absent: pronater drift, facial droop, speech deficit - Skin Skin exam: Present: dry, intact - Patient Status Disposition: Home, Self-Care Condition: Good Functional capacity at discharge: uses cane/walker - Discharge Instructions Follow Up With: Gigi Alas MD [Primary Care Provider] - 01/01/18 11:00 am Forms: Inpatient Work/School Release Additional Instructions: Call [facility] when you get home to have them deliver oxygen equipment. [phone] - Diet and Activity Activity: increase activity as tolerated Diet: low salt diet
[2017-12-26 11:51] VITALS: BP 156/80
[2017-12-26] MEDS ORDERED: Furosemide 20 MG TABLET PO SCH (12:15)
== END 2017-12-26 14:58 | disposition home or self-care (01) | DRG 291 ==
LOC: 3BNU 18:50 → EMEROOARM 18:50 → 3BNU 23:16
PROVIDERS: ADMIT Pediatrics; ATTEND Pediatrics

== ENCOUNTER 2018-05-07 15:14 | Observation (INO) ==
[2018-05-07] MEDS ORDERED: OXYCODONE Oral CONC 10 MG/0.5 ML ORAL.SYG SL STA (19:48)
--- NOTE | 2018-05-07 19:58 | Emergency Department Note ---
Disposition Clinical Impression: Fall Qualifiers: Encounter type: initial encounter Qualified Code(s): W19.XXXA - Unspecified fall, initial encounter Disposition: Still a Patient Condition: Good Referrals: Gigi Alas MD [Primary Care Provider] - Forms: ED Satisfaction Letter General Adult HPI - General Chief complaint: ED Back Pain/Injury Stated complaint: Hip Pain/Fall Time Seen by Provider: 05/07/18 19:27 Source: patient Limitations: no limitations - History of Present Illness Pain Scale: 10 - Related Data Home Medications Medication Instructions Recorded Confirmed Albuterol Sulfate [Proair Hfa] 2 puff IH Q4H PRN 12/20/17 05/06/18 Aspirin Enteric Coated [Aspirin EC] 81 mg PO DAILY 12/20/17 05/06/18 Calcium Carbonate/Vitamin D3 1 tab PO DAILY 12/20/17 05/06/18 [Oyster Shell 250 mg-Vit D 125] Diltiazem CD (24hr) [Cardizem CD] 120 mg PO DAILY 12/20/17 05/06/18 Docusate [Colace] 100 mg PO BID 12/20/17 05/06/18 Dorzolamide/Timolol [Cosopt] 1 drop OP BID 12/20/17 05/06/18 Latanoprost [Xalatan] 1 drop OP DAILY 12/20/17 05/06/18 Montelukast [Singulair] 10 mg PO DAILY 12/20/17 05/06/18 Multivitamin [One Daily Essential] 1 tab PO DAILY 12/20/17 05/06/18 Potassium Chloride Elixir 5 ml PO TID 12/20/17 05/06/18 [Potassium Chloride] Simvastatin [Zocor] 20 mg PO HS 12/20/17 05/06/18 Telmisartan [Micardis] 80 mg PO DAILY 12/20/17 05/06/18 Previous Rx's Medication Instructions Recorded Furosemide [Lasix] 20 mg PO DAILY #30 tablet 12/26/17 Allergies Allergy/AdvReac Type Severity Reaction Status Date / Time No Known Allergies Allergy Verified 12/20/17 17:54 Past Medical History - Past Medical History Medical history: Reports: diabetes, hypertension Psychiatric history: Reports: no psych history LOAD MIXER history: Reports: no LOAD MIXER history - Social History Smoking Status: 2nd Hand Smoke Exposure Smokeless Tobacco Status: No Alcohol use: Reports: none Drug use: Reports: none Physical Exam - General Limitations: no limitations General appearance: alert, in no apparent distress Course Vital Signs Temperature 97.4 F L 05/07/18 15:27 Pulse Rate 81 05/07/18 15:27 Respiratory Rate 20 05/07/18 15:27 Blood Pressure 136/84 05/07/18 15:27 O2 Sat by Pulse Oximetry 96 05/07/18 15:27 Temperature 97.4 F L 05/07/18 15:27 Pulse Rate 81 05/07/18 15:27 Respiratory Rate 20 05/07/18 15:27 Blood Pressure 136/84 05/07/18 15:27 O2 Sat by Pulse Oximetry 96 05/07/18 15:27 Oxygen Delivery Oxygen Delivery Room Air Attestation Statement - Attestation Attestation: Resident Attestation: I examined this patient and my medical decision making was reviewed with the Resident Physician. I agree with the documented findings, disposition and treatment plan as described except to the extent set forth below. We independently had [id number] contact with the patient. Patient presenting for evaluation of left-sided pain. Patient initially seen at urgent care. Pain started after a fall. Patient on aspirin. Patient states she fell onto the doorway and did not hit her head and did not lose consciousness is been having a headache. Patient did not get dizzy prior to this and appears to be mechanical fall. Patient initially had x-rays at urgent. Of chest abdomen and hip without findings. On examination she does not have any CT or L-spine tenderness. She has no hip tenderness. Tenderness to lateral ribs. Concern for possible rib fracture. CT scans and urinalysis pending.
--- NOTE | 2018-05-07 20:08 | Emergency Department Note ---
Disposition Clinical Impression: Fall Qualifiers: Encounter type: initial encounter Qualified Code(s): W19.XXXA - Unspecified fall, initial encounter Rib fractures Qualifiers: Encounter type: initial encounter Rib fracture type: multiple ribs Fracture type: closed Laterality: left Qualified Code(s): S22.42XA - Multiple fractures of ribs, left side, initial encounter for closed fracture Left pulmonary contusion Qualifiers: Encounter type: initial encounter Qualified Code(s): S27.321A - Contusion of lung, unilateral, initial encounter Disposition: Home, Self-Care Condition: Good Instructions: How to Use an Incentive Spirometer (ED), Rib Fracture (ED), Fall Prevention for Older Adults (ED) Reasons to Return/Additional Instructions: Please take your medication as prescribed. Please contact your primary care physician tomorrow to be seen by them by Sunday to discuss her emergency department visit be reevaluated. If you develop chest pain or shortness of breath or you have any other signs or symptoms are concerning to you please return to emergency department immediately. Please use your incentive spirometer at least 6 times an hour. A good way to remember this is to use it every time a commercial comes on while watching television. Please use the lidocaine patches 1 a day to the pain in your back. Please be sure to take plenty of deep breaths. You have referred fractures. If you are not careful to take deep breaths he may develop pneumonia. If you develop shortness of breath or chest pain or fever greater than 100.4 you need to be seen in the emergency department or by her primary care physician. Prescriptions: OxyCODONE/APAP 5/325 [Percocet 5/325 MG] 1 each PO Q6HR PRN 2 Days #8 tablet PRN Reason: Pain Lidocaine Patch [Lidoderm 5% patch] 1 each TP DAILY #30 adh..patch Referrals: Gigi Alas MD [Primary Care Provider] - Forms: ED Satisfaction Letter General Adult HPI - General Chief complaint: ED Back Pain/Injury Stated complaint: Hip Pain/Fall Time Seen by Provider: 05/07/18 19:27 Source: patient Limitations: no limitations Nursing Notes Reviewed: Yes Vital Signs Reviewed: Yes - History of Present Illness HPI Narrative: Patient is an 83 year old female presenting because of pain in her left side pain from a ground-level mechanical fall that she had at her home 3 days ago. Patient states that she fell while on her way to the mailbox and slipped on what she thought was water but was ice into the doorframe, no one was at home at that time. She was able to get up and crawl inside. She did not inform anyone of the fall. Patient denies striking her head. Denies any loss of consciousness. She is not on any blood thinners. Patient is reporting constant left flank/left rib pain. She denies any chest pain shortness of breath. She has been ambulatory since the fall and denies any pain on ambulation. She denies any hematuria, dysuria, or trouble urinating. She does have a history of kidney stones, but states that this is not similar. Onset (ago): day(s) (3) Pain Scale: 10 - Related Data Home Medications Medication Instructions Recorded Confirmed Albuterol Sulfate [Proair Hfa] 2 puff IH Q4H PRN 12/20/17 05/06/18 Aspirin Enteric Coated [Aspirin EC] 81 mg PO DAILY 12/20/17 05/06/18 Calcium Carbonate/Vitamin D3 1 tab PO DAILY 12/20/17 05/06/18 [Oyster Shell 250 mg-Vit D 125] Diltiazem CD (24hr) [Cardizem CD] 120 mg PO DAILY 12/20/17 05/06/18 Docusate [Colace] 100 mg PO BID 12/20/17 05/06/18 Dorzolamide/Timolol [Cosopt] 1 drop OP BID 12/20/17 05/06/18 Latanoprost [Xalatan] 1 drop OP DAILY 12/20/17 05/06/18 Montelukast [Singulair] 10 mg PO DAILY 12/20/17 05/06/18 Multivitamin [One Daily Essential] 1 tab PO DAILY 12/20/17 05/06/18 Potassium Chloride Elixir 5 ml PO TID 12/20/17 05/06/18 [Potassium Chloride] Simvastatin [Zocor] 20 mg PO HS 12/20/17 05/06/18 Telmisartan [Micardis] 80 mg PO DAILY 12/20/17 05/06/18 Previous Rx's Medication Instructions Recorded Furosemide [Lasix] 20 mg PO DAILY #30 tablet 12/26/17 Lidocaine Patch [Lidoderm 5% patch] 1 each TP DAILY #30 adh..patch 05/07/18 OxyCODONE/APAP 5/325 [Percocet 1 each PO Q6HR PRN 2 Days #8 tablet 05/07/18 5/325 MG] Allergies Allergy/AdvReac Type Severity Reaction Status Date / Time No Known Allergies Allergy Verified 12/20/17 17:54 All systems ED: reviewed and negative except as stated. Review of Systems: As Per HPI Constitutional: Denies: fever, chills Cardiovascular: Denies: chest pain Respiratory: Denies: dyspnea Gastrointestinal: Denies: abdominal pain Genitourinary: Denies: urgency, dysuria, hematuria Musculoskeletal: Reports: back pain, other (Left lower rib pain) Neurological: Denies: abnormal gait Past Medical History - Past Medical History Attestation: Yes The following information was validated with the patient. 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 Absent: scleral icterus - ENT ENT exam: normal exam, normal oropharynx, mucous membranes moist - Neck Neck exam: Present: normal inspection, full ROM, trachea midline, other (No midline tenderness, step-offs, deformities) - Chest Chest inspection: Present: tenderness (To palpation of left lower ribs. No sternal tenderness. No paradoxical motion, no crepitus. No ecchymosis). Absent: normal inspection - Respiratory Respiratory exam: Present: normal lung sounds bilaterally. Absent: respiratory distress, wheezes, stridor, accessory muscle use - Cardiovascular Cardiovascular exam: Present: regular rate, normal rhythm, normal heart sounds. Absent: bradycardia, tachycardia - Abdominal Exam Abdominal exam: Present: soft, Non-Tender. Absent: tenderness, distention - Extremities Exam Extremities exam: Present: normal inspection, full ROM, other (5 out of 5 strength in all extremities, full range of motion, no bony tenderness to any extremity, no ecchymosis or signs of traumatic injury to extremities). Absent: tenderness, pedal edema, joint swelling - Expanded Lower Extremity Exam Hip/Pelvis exam: Present: pelvis stable - Back Exam Back exam: Present: normal inspection, CVA tenderness (L), other (Has no deformities or pain to midline tenderness of thoracic or lumbar spine). Absent: full ROM, CVA tenderness (R) - Neurological Exam Neurological exam: Present: alert, oriented X3 - Psychiatric Psychiatric exam: Present: normal affect, normal mood - Skin Skin exam: Present: warm, dry, intact, normal color. Absent: rash Course Course Narrative: Female patient presents emergency department complaining of left side pain that started Sunday after a ground-level fall. She had no loss conscious. She is mentating appropriately at this time with no signs of trauma to her head. She denies any loss of consciousness or striking her head. She is not on any blood thinners. She denies any headaches or visual changes. She states that she did go to urgent care earlier they did some x-rays and they did not find any fractures however she is still in pain. When she points to her pain is this is a left lower rib area. She does have some left CVA tenderness as well with a history of kidney stones. She does not have any signs of trauma to her head or neck or back. She has no midline step-offs or deformities or pain to palpation of her spine. She has full range of motion of all 4 extremity without pain. She has clear lung sounds does not appear to be in any respiratory distress. She denies any shortness of breath or chest pain. She has no palpation of her sternal area. She does have pain to palpation of her left lower ribs. There are no signs of ecchymosis over this. We will get a CT of patient's chest to assess for rib fractures and CT of her abdomen as well. I am concerned for possible any stone despite her stating that this does not feel like her previous stone. She does not have any dysuria or urinary symptoms are we will get a UA as well. - Reevaluation(s) Reevaluation #1: Patient reevaluated. She states that the medication did relieve her pain completely. Time: 20:48 Reevaluation #2: Patient still resting comfortably. CT scan did show multiple rib fractures on the left. Ribs 4 through 10 were fractured. With a pulmonary contusion under. Patient has had no episodes of respiratory distress while she is here. I want to discuss this with the patient and her daughter. We will admit patient to the hospital secondary to the primary contusions and multiple rib fractures and patient's age. We will admit for PTOT pulmonary toilet and incentive spirometry. They are agreeable to stay in the hospital. We discussed transfer to our trauma center and they are refusing at this time. They are requesting to stay at [place]. We will discuss this with the hospitalist at this time. Time: 22:22 - Consultations Consultation #1: Dr Garland accepted Pt in stable condition. Time: 22:46 Vital Signs Temperature 97.4 F L 05/07/18 15:27 Pulse Rate 81 05/07/18 15:27 Respiratory Rate 20 05/07/18 15:27 Blood Pressure 136/84 05/07/18 15:27 O2 Sat by Pulse Oximetry 96 05/07/18 15:27 Temperature 97.4 F L 05/07/18 15:27 Pulse Rate 76 05/07/18 21:50 Respiratory Rate 18 05/07/18 21:50 Blood Pressure 149/82 05/07/18 21:50 O2 Sat by Pulse Oximetry 94 05/07/18 21:50 Oxygen Delivery Oxygen Delivery Room Air Medical Decision Making - Medical Records Medical records reviewed: Yes I reviewed the patient's medical records. - Lab Data Lab Results 05/07/18 Range/Units 20:27 Urine Color Yellow (Yellow) Urine Clarity Clear (Clear) Urine pH 5.0 (5.0-8.0) pH Units Ur Specific [place] 1.013 (1.010-1.025) Urine Protein Negative (Neg-Trace) mg/dL Urine Glucose (UA) Normal (Normal) mg/dL Urine Ketones Negative (Negative) mg/dL Urine Blood Negative (Negative) Urine Nitrite Negative (Negative) Urine Bilirubin Negative (Negative) Urine Urobilinogen Normal (Normal) mg/dL Ur Leukocyte Esterase Negative (Negative) Ur Culture Indicated? NO (NO)
[2018-05-07 20:38] LABS: Bilirubin,Urine Negative (Negative); Blood,Urine Negative (Negative); Clarity,Urine Clear (Clear); Color,Urine Yellow (Yellow); Glucose,Urine (UA) Normal (Normal); Ketones,Urine Negative (Negative); Leukocyte Esterase,Urine Negative (Negative); Nitrite,Urine Negative (Negative); Protein,Urine Negative (Neg-Trace); Specific Gravity,Urine 1.013 (1.010-1.025); Urobilinogen,Urine Normal (Normal)
[2018-05-07 22:37] LABS: Basophils % 0.5 %; Eosinophils # 0.2 K/mcL (0.0-0.6); Eosinophils % 2.2 %; Hematocrit 38.8 % (35.3-44.9); Hemoglobin 12.6 g/dL (11.5-15.4); Immature Granulocytes % 0.1 % (0-4); Lymphocytes # 2.6 K/mcL (0.6-4.6); Lymphocytes % 35.3 %; Mean Corpuscular HGB Conc 32.5 g/dL (31.6-35.5); Mean Corpuscular Hemoglobin 26.9 pg (28.0-33.3); Mean Corpuscular Volume 82.9 fL (83.0-100.0); Mean Platelet Volume 9.5 fL (9.4-12.4); Monocytes # 0.7 K/mcL (0.0-1.3); Monocytes % 9.8 %; Neutrophils # 3.8 K/mcL (1.6-8.9); Platelet Count 211 K/mcL (140-400); Red Blood Count 4.68 M/mcL (3.82-4.97); Red Cell Distribution Width 14.9 % (11.5-14.5); Segmented Neutrophils % 52.1 %
[2018-05-07 22:56] LABS: Alanine Aminotransferase 8 Units/L (7-52); Albumin 3.6 g/dL (3.5-5.7); Alkaline Phosphatase 71 Units/L (34-104); Aspartate Amino Transferase 13 Units/L (13-39); BUN/Creatinine Ratio 21 (6-26); Bilirubin,Total 0.4 mg/dL (0.3-1.0); Blood Urea Nitrogen 22 mg/dL (8-23); Calcium 9.5 mg/dL (8.6-10.3); Carbon Dioxide 25 mEq/L (23-29); Chloride 105 mEq/L (98-107); Globulin 3.5 g/dL (2.4-3.5); Glucose 117 mg/dL (70-105); Osmolality,Calculated 288 (280-300); Potassium 3.7 mEq/L (3.5-5.1); Sodium 137 mEq/L (136-145); Total Protein 7.1 g/dL (6.4-8.9); eGFR For Non-African Americans 50 (> 60)
[2018-05-08] MEDS ORDERED: Naloxone 0.4 MG/ML INJ IVP PRN (01:55)
[2018-05-08] MEDS ORDERED: Acetaminophen 325 MG TABLET PO PRN (01:55)
[2018-05-08] MEDS ORDERED: *HR* HYDROcodone/Acet 5/325 mg TABLET PO PRN (01:55)
[2018-05-08] MEDS ORDERED: D5% in Water 1,000 ML IVC PRN (03:56)
[2018-05-08] MEDS ORDERED: Dextrose Gel 15 GM/37.5 ML TUBE PO PRN ×2 (03:56)
[2018-05-08] MEDS ORDERED: *HR* Dextrose 50 % in Water (Syg) 50 ML SYRINGE IVP PRN (03:56)
--- NOTE | 2018-05-08 04:23 | Internal Med History&Physical ---
Date of Encounter: 05/08/18 Time of Encounter: 03:20 Internal Medicine - H&P: HPI Chief complaint: Left rib fractures Admitted From: Emergency Dept Plans for Post Hospital Care: Home History of present illness: Ms. Dobbins is a 83 year old female Patient presented to the emergency room for ground-level fall after she slipped on ice while getting out of her home 3 days ago. She was on her way to the mailbox when she slipped landing on her left side she denies loss of consciousness and hitting her head. Since this time she has continued to have left flank and left rib pain but denies shortness of breath and chest pain. She has been able to get around but after noting the injury to her daughter, the daughter became concerned and took the patient to an urgent care for further evaluation. Initial x-rays there did not reveal any fractures so she was referred to the emergency room. In the emergency room patient's CBC was within normal limits, BMP reveals chronic kidney disease stage III but otherwise within normal limits. Patient's glucose was 117. Urinalysis was negative for infection. Chest and abdomen. CT showed the followin. Acute fractures of the left 4th through 10th ribs (grade 2 chest wall injury). 2. Centrilobular emphysema. 3. Consolidative change at the left lung base favored to reflect atelectasis. No pleural effusion or pneumothorax identified. 4. Severe atherosclerotic disease. 5. No acute intra-abdominal process identified. 6. Colonic diverticulosis without evidence for diverticulitis. 7. Please see separate CT thoracic and lumbar spine report same day for spine findings. Thoracic/lumbar CT spine showed no acute osseous abnormality patient's vital signs were stable, she was in no acute distress but did have continued pain. This pain improved after oxycodone. Due to the number of rib fractures sustained, patient was admitted to the hospital for further management. Upon my evaluation patient is resting comfortably in the hospital bed in no acute distress. She states that she has the left-sided flank pain but it has improved since the emergency room. She denies chest pain, nausea, vomiting, shortness of breath, diarrhea, constipation and abdominal pain. Her daughter is at bedside. She has never before broken any bones. Past Med Surg Social Fam HX - Past Medical History Medical history: COPD, diabetes, hypertension Additional medical history: Type II prediabetic diet controlled Psychiatric history: no psych history - Social History Smoking Status: 2nd Hand Smoke Exposure Smokeless Tobacco Status: No Alcohol use: none Drug use: none Internal Medicine - H&P: Meds Albuterol Sulfate [Proair Hfa] 2 puff IH Q4H PRN 12/20/17 [History] Aspirin Enteric Coated [Aspirin EC] 81 mg PO DAILY 12/20/17 [History] Calcium Carbonate/Vitamin D3 [Oyster Shell 250 mg-Vit D 125] 1 tab PO DAILY [History] Diltiazem CD (24hr) [Cardizem CD] 120 mg PO DAILY 12/20/17 [History] Docusate [Colace] 100 mg PO BID 12/20/17 [History] Dorzolamide/Timolol [Cosopt] 1 drop OP BID 12/20/17 [History] Latanoprost [Xalatan] 1 drop OP DAILY 12/20/17 [History] Montelukast [Singulair] 10 mg PO DAILY 12/20/17 [History] Multivitamin [One Daily Essential] 1 tab PO DAILY 12/20/17 [History] Potassium Chloride Elixir [Potassium Chloride] 5 ml PO TID 12/20/17 [History] Simvastatin [Zocor] 20 mg PO HS 12/20/17 [History] Telmisartan [Micardis] 80 mg PO DAILY 12/20/17 [History] Lidocaine Patch [Lidoderm 5% patch] 1 each TP DAILY #30 adh..patch 05/07/18 [Rx] OxyCODONE/APAP 5/325 [Percocet 5/325 MG] 1 each PO Q6HR PRN 2 Days #8 tablet 05/07/18 [Rx] Allergy/AdvReac Type Severity Reaction Status Date / Time No Known Allergies Allergy Verified 12/20/17 17:54 All Systems PM: A 10-system review of systems was performed and is negative for pertinent findings except as documented above in the HPI. - Constitutional Vitals: Temp Pulse Resp BP Pulse Ox 97.9 F 72 18 126/77 92 05/08/18 01:53 05/08/18 01:53 05/08/18 01:53 05/08/18 01:53 05/08/18 01:53 General appearance: Present: cooperative, A&O X 3, pleasant, no acute distress, answers questions appropriately Exam: - - Head Head exam: Present: normal inspection - Eye Eye exam: Present: EOMI, normal appearance - Neck Neck exam general surgery: Absent: tenderness - Respiratory Respiratory exam: Present: chest wall tenderness, CTAB. Absent: decreased breath sounds, rales, respiratory distress, rhonchi, wheezes Additional comments: Left flank pain with palpation over lower ribs - Cardiovascular Cardiovascular exam: Present: RRR. Absent: diastolic murmur, systolic murmur - GI/Abdominal GI/Abdominal exam: Present: normal bowel sounds, soft. Absent: tenderness - Extremities Exam Extremities exam: Present: warm, radial pulses palpable and symmetrical. Absent: calf tenderness, pedal edema, tenderness - Back Exam Back exam: Present: CVA tenderness (L). Absent: CVA tenderness (R) - Neurological Exam Neurological exam: Present: no focal deficits, strengths equal and symetr throughout. Absent: motor sensory deficit, facial droop, speech deficit - Skin Skin exam: Present: dry, normal color, warm Internal Med - H&P Results - Labs CBC & Chem 7: 05/07/18 22:27 05/07/18 22:27 Labs: Short CBC 05/07/18 Range/Units 22:27 WBC 7.3 (4.3-11.1) K/mcL Hgb 12.6 (11.5-15.4) g/dL Hct 38.8 (35.3-44.9) % Plt Count 211 (140-400) K/mcL Neutrophils # 3.8 (1.6-8.9) K/mcL BMP 05/07/18 22:27 Sodium 137 Potassium 3.7 Chloride 105 Carbon Dioxide 25 BUN 22 Creatinine 1.04 Glucose 117 H Calcium 9.5 Liver Function 05/07/18 Range/Units 22:27 Total Bilirubin 0.4 (0.3-1.0) mg/dL AST 13 (13-39) Units/L ALT 8 (7-52) Units/L Alkaline Phosphatase 71 (34-104) Units/L Albumin 3.6 (3.5-5.7) g/dL Urine 05/07/18 Range/Units 20:27 Urine Color Yellow (Yellow) Urine Clarity Clear (Clear) Urine pH 5.0 (5.0-8.0) pH Units Ur Specific [place] 1.013 (1.010-1.025) Urine Protein Negative (Neg-Trace) mg/dL Urine Glucose (UA) Normal (Normal) mg/dL - Impressions ITS Impressions Chest CT 05/07/18 19:43 IMPRESSION: 1. Acute fractures of the left 4th through 10th ribs (grade 2 chest wall injury). 2. Centrilobular emphysema. 3. Consolidative change at the left lung base favored to reflect atelectasis. No pleural effusion or pneumothorax identified. 4. Severe atherosclerotic disease. 5. No acute intra-abdominal process identified. 6. Colonic diverticulosis without evidence for diverticulitis. 7. Please see separate CT thoracic and lumbar spine report same day for spine findings. D/ / Sinan Crawley MD / Sinan Crawley MD Interpreting Provider: Sinan Crawley MD Thoracic Spine CT 05/07/18 19:43 IMPRESSION: No acute osseous abnormality of the thoracic or lumbar spine identified. D/ / Sinan Crawley MD / Sinan Crawley MD Interpreting Provider: Sinan Crawley MD Abdomen/Pelvis CT 05/07/18 19:46 IMPRESSION: 1. Acute fractures of the left 4th through 10th ribs (grade 2 chest wall injury). 2. Centrilobular emphysema. 3. Consolidative change at the left lung base favored to reflect atelectasis. No pleural effusion or pneumothorax identified. 4. Severe atherosclerotic disease. 5. No acute intra-abdominal process identified. 6. Colonic diverticulosis without evidence for diverticulitis. 7. Please see separate CT thoracic and lumbar spine report same day for spine findings. D/ / Sinan Crawley MD / Sinan Crawley MD Interpreting Provider: Sinan Crawley MD Lumbar Spine CT 05/07/18 19:46 IMPRESSION: No acute osseous abnormality of the thoracic or lumbar spine identified. D/ / Sinan Crawley MD / Sinan Crawley MD Interpreting Provider: Sinan Crawley MD - Assessment and plan (1) Rib fractures Current Visit: Yes Status: Acute Assessment and plan: Secondary to fall as patient slipped on ice trending get out of her home. [address] on the left. Supportive care Incentives spirometry Pain management as needed Will notify orthopedic surgery, consult if they feel necessary Qualifiers: Encounter type: initial encounter Rib fracture type: multiple ribs Fracture type: closed Laterality: left Qualified Code(s): S22.42XA - Multiple fractures of ribs, left side, initial encounter for closed fracture (2) Left pulmonary contusion Current Visit: Yes Status: Acute Assessment and plan: Secondary to fall and rib fractures. Pain management as needed Supportive care Incentive spirometry Qualifiers: Encounter type: initial encounter Qualified Code(s): S27.321A - Contusion of lung, unilateral, initial encounter (3) Fall Current Visit: Yes Status: Acute Assessment and plan: Patient slipped on ice. Continue management of rib fractures as above Qualifiers: Encounter type: initial encounter Qualified Code(s): W19.XXXA - Unspecified fall, initial encounter (4) Type II diabetes mellitus Current Visit: No Status: Acute Qualifiers: Diabetes mellitus snf insulin use: with snf use Diabetes mellitus complication status: without complication Qualified Code(s): E11.9 - Type 2 diabetes mellitus without complications; Z79.4 - intermediate (current) use of insulin (5) Chronic kidney disease, stage III (moderate) Current Visit: Yes Status: Chronic Assessment and plan: At baseline Continue to monitor (6) DVT prophylaxis Current Visit: No Status: Acute Assessment and plan: SCDs - Time Spent With Patient Total time spent is greater than 50% in coordination of care (as documented) at patient's floor/unit and/or counseling patient: Greater than 35 minutes
[2018-05-08 04:50] LABS: Hematocrit 38.7 % (35.3-44.9); Hemoglobin 12.3 g/dL (11.5-15.4); Mean Corpuscular HGB Conc 31.8 g/dL (31.6-35.5); Mean Corpuscular Hemoglobin 26.1 pg (28.0-33.3); Mean Corpuscular Volume 82.2 fL (83.0-100.0); Mean Platelet Volume 10.5 fL (9.4-12.4); Platelet Count 197 K/mcL (140-400); Red Blood Count 4.71 M/mcL (3.82-4.97); Red Cell Distribution Width 14.9 % (11.5-14.5)
[2018-05-08 05:09] LABS: BUN/Creatinine Ratio 22 (6-26); Blood Urea Nitrogen 20 mg/dL (8-23); Calcium 9.6 mg/dL (8.6-10.3); Carbon Dioxide 22 mEq/L (23-29); Chloride 105 mEq/L (98-107); Glucose 104 mg/dL (70-105); Osmolality,Calculated 289 (280-300); Potassium 3.2 mEq/L (3.5-5.1); Sodium 138 mEq/L (136-145); eGFR For Non-African Americans 57 (> 60)
[2018-05-08] MEDS: Insulin LISPRO 300 UNITS/3 ML VIAL SQ SCH ×3 (08:41→17:11)
[2018-05-08] MEDS: *HR* OxyCODONE Immed Rel 5 MG TABLET PO PRN (09:00)
[2018-05-08] MEDS: Diltiazem CD (24hr) 120 MG CAPSULE PO SCH (11:19)
[2018-05-08] MEDS: Aspirin Enteric Coated 81 MG Tablet PO SCH (11:19)
--- NOTE | 2018-05-08 14:08 | Event Note ---
Date of Encounter: 05/08/18 Time of Encounter: 14:04 S: Pt still with rib pain at rest and with movement. Has good appetite and PO intak e. Not limiting breathing and can take deep breaths. Of note did desat to high 80s with exertion (although she does wear prn O2 at home already due to her COPD) which responded with 2L nasal cannula. Only complaint is ongoing pain. O: HR 70s, RR 16, SBP 120s, O2 96% on RA no chest wall bruising is tender to palpation no retractions or displacement CT chest showing L 4-10 acute nondisplaced rib fractures A: rib fractures w underlying pulmonary contusion but no hypoxia or flail chest refractory pain P: keep overnight for pain management PT/OT consults to evaluate pt since injury was from a fall outpatient follow up with thoracic surgeon Dr Bullard in 2 weeks for repeat CXR to eval for interval development of complications
[2018-05-08] MEDS ORDERED: Ipratropium/Albuterol Neb 3 ML IH PRN (19:15)
[2018-05-08] MEDS: Dorzolamide/Timolol OPTH 10 ML BOTTLE BOTH EYES SCH (20:30)
[2018-05-08] MEDS: Latanoprost 2.5 ML BOTTLE BOTH EYES SCH (20:30)
[2018-05-08] MEDS ORDERED: Insulin LISPRO 300 UNITS/3 ML VIAL SQ SCH (21:00)
[2018-05-09] MEDS: *HR* OxyCODONE Immed Rel 5 MG TABLET PO PRN (01:32)
[2018-05-09] MEDS: Insulin LISPRO 300 UNITS/3 ML VIAL SQ SCH ×2 (08:47→12:08)
[2018-05-09 09:43] VITALS: BP 104/68
[2018-05-09] MEDS: Diltiazem CD (24hr) 120 MG CAPSULE PO SCH (10:03)
[2018-05-09] MEDS: Aspirin Enteric Coated 81 MG Tablet PO SCH (10:15)
[2018-05-09] MEDS: Dorzolamide/Timolol OPTH 10 ML BOTTLE BOTH EYES SCH (10:15)
[2018-05-09] MEDS: Latanoprost 2.5 ML BOTTLE BOTH EYES SCH (10:15)
--- NOTE | 2018-05-09 12:45 | Discharge Summary ---
- NOTES TO OUTPATIENT PROVIDER Notes to Outpatient Provider: Needs CXR in 2 weeks at follow up appt w Dr Bullard Date of Encounter: 05/09/18 Time of Encounter: 12:40 - Discharge Diagnosis (1) Rib fractures Priority: Primary Status: Acute Qualifiers: Encounter type: initial encounter Rib fracture type: multiple ribs Fracture type: closed Laterality: left Qualified Code(s): S22.42XA - Multiple fractures of ribs, left side, initial encounter for closed fracture Hospital course: Ms. Dobbins is a 83 year old female who slipped on ice 3 days prior to admission and fell on her left side. She hurt her left side and complained of severe pain which did not get better so eventually came to the ED. She did not have any SOB. In the ED, CT of her chest showed acute rib fractures of rib 4-10 on the left side, nondisplaced. She was admitted for pain control and monitoring for development of complications. In the hospital, patient maintained her O2 sats and was able to use incentive spirometer without difficulty. Good PO. Pain controlled with PO narcotics. Patient will be discharged home with outpatient thoracic surgery appointment in 2 weeks. Dx: multiple continguous rib fractures, refractory pain Follow up: Dr Bullard 2 weeks for repeat CXR Med changes: short term supply Blanchard 5's, take 1-2 tabs prn moderate or severe pain Mental status: awake, fully oriented Code: full code - Time Spent with Patient Total time spent providing and/or coordinating discharge services: Greater than 30 minutes - Discharge Medications Prescriptions: HYDROcodone/Acet 5/325 mg [Blanchard 5-325 mg] 1 - 2 tab PO Q6H PRN 7 Days #20 tablet PRN Reason: Moderate Pain Home Medications: Albuterol Sulfate [Proair Hfa] 2 puff IH Q4H PRN 12/20/17 [History] Aspirin Enteric Coated [Aspirin EC] 81 mg PO DAILY 12/20/17 [History] Calcium Carbonate/Vitamin D3 [Oyster Shell 250 mg-Vit D 125] 1 tab PO DAILY 12/20/17 [History] Diltiazem CD (24hr) [Cardizem CD] 120 mg PO DAILY 12/20/17 [History] Docusate [Colace] 100 mg PO BID 12/20/17 [History] Dorzolamide/Timolol [Cosopt] 1 drop OP BID 12/20/17 [History] Latanoprost [Xalatan] 1 drop OP DAILY 12/20/17 [History] Montelukast [Singulair] 10 mg PO DAILY 12/20/17 [History] Multivitamin [One Daily Essential] 1 tab PO DAILY 12/20/17 [History] Potassium Chloride Elixir [Potassium Chloride] 5 ml PO TID 12/20/17 [History] Simvastatin [Zocor] 20 mg PO HS 12/20/17 [History] Telmisartan [Micardis] 80 mg PO DAILY 12/20/17 [History] Lidocaine Patch [Lidoderm 5% patch] 1 each TP DAILY #30 adh..patch 05/07/18 [Rx] HYDROcodone/Acet 5/325 mg [Blanchard 5-325 mg] 1 - 2 tab PO Q6H PRN 7 Days #20 tablet 05/09/18 [Rx] Allergies/Adverse Reactions: Allergy/AdvReac Type Severity Reaction Status Date / Time No Known Allergies Allergy Verified 12/20/17 17:54 Date of admission: 05/08/18 00:19 Primary care physician: Gigi Alas MD Consults: 05/08/18 14:00 Consult to Occupational Therapy [CONS] Routine Comment: Evaluate, develop and implement POC Reason for Consult: fell on ice Does patient have active BEDREST order?: No Is patient medically & hemodynamically stable?: Yes Consult to Physical Therapy [CONS] Routine Comment: Evaluate, develop and implement POC Reason for Consult: fell on ice Does patient have active BEDREST order?: No Is patient medically & hemodynamically stable?: Yes 05/09/18 12:11 Consult to [employer] [CONS] Routine Reason for SW Consult: Potential need for continuation of home health services - Constitutional Vitals: Temp Pulse Resp BP Pulse Ox 97.5 F L 77 16 104/68 93 05/09/18 09:29 05/09/18 09:42 05/09/18 09:42 05/09/18 09:42 05/09/18 09:29 General appearance: Present: cooperative, A&O X 3, pleasant, no acute distress, answers questions appropriately Exam: General: NAD, AAOx3, good eye contact, well appearing, elderly Thoracic: Normal breath sounds b/l, no wheezing or crackles, does have tenderness anterolateral left chest, no bruising Cardio: Normal S1 and S2, regular rate and rhythm, no murmurs Abdomen: Soft, nontender, nondistended. Extremities: Warm, well perfused. DP pulses 2+ b/l. No edema. Skin: Intact. No rashes, bruises, or ulcers Neuro: Awake, fully oriented. Speech fluent - Patient Status Disposition: Home Health Service Condition: Fair Functional capacity at discharge: independent ambulation Overall status at discharge: patient is progressing back to baseline - Discharge Instructions Follow Up With: Gigi Alas MD [Primary Care Provider] - - Diet and Activity Activity: resume usual activities as tolerated, wear oxygen at night (and as needed) Diet: advance to your usual diet
== END 2018-05-09 15:10 | disposition home health service (06) ==
LOC: EMEROOARM 15:14 → 3NENU 15:14 → SUATTDRO 05-08 00:19 → 3NENU 05-08 01:12
PROVIDERS: ADMIT Family Medicine; ATTEND Internal Medicine